=== PATIENT | male | born 1940 | race Caucasian/White ===

== ENCOUNTER 2018-08-26 06:49 | Day surgery (SDC) | payer MEDICARE ==
[~2018-08-26 06:49] MED LIST: Acetaminophen TAB* 325 MG PO ONE; Buffered Lidocaine 1% SYRIN* 1 ML/SYRINGE INTRADERM ONE; Lactated Ringers 1000 ML Bag* 1,000 ML IV SCH
[2018-08-26] MEDS ORDERED: ceFAZolin 2 GM PREMIX in ORs 2 GM/50 ML BAG IVPB ONE (07:00)
[2018-08-26] MEDS ORDERED: Buffered Lidocaine 1% SYRIN* 1 ML/SYRINGE INTRADERM ONE (07:00)
[2018-08-26] MEDS ORDERED: Acetaminophen TAB* 325 MG ONE (07:00)
[2018-08-26] MEDS ORDERED: Midazolam* 1 MG/ML 2 ML VIAL (2 MG) ONE (08:00)
[2018-08-26] MEDS ORDERED: fentaNYL* 50 MCG/ML 2 ML VIAL (100 MCG VIAL) ONE (08:00)
[2018-08-26] MEDS ORDERED: Naloxone* 0.4 MG/ML 1 ML VIAL IV PRN (08:11)
[2018-08-26] MEDS ORDERED: DiMENhydriNATE IV* 50 MG/ML VIAL IV PUSH PRN (08:11)
[2018-08-26] MEDS ORDERED: Acetaminophen TAB* 325 MG PO PRN (08:11)
[2018-08-26] MEDS ORDERED: HYDROcodone/ACETAMIN 5-325 MG* 1 TAB PO PRN (08:11)
[2018-08-26] MEDS ORDERED: diPHENhydraMINE IV* 50 MG/ML 1 ml VIAL (BENADRYL) IV PRN (08:11)
[2018-08-26] MEDS ORDERED: Lidocain 1% EPI 1:100,000 * 30 ML MDV ONE (08:35)
[2018-08-26] MEDS ORDERED: Famotidine IV* 10 MG/ML 2 ML (20 mg) ONE (08:43)
[2018-08-26] MEDS ORDERED: Ondansetron INJ* 2 MG/ML VIAL ONE (09:01)
[2018-08-26] MEDS ORDERED: Propofol* 10 MG/ML 20 ML BTL ONE (09:01)
[2018-08-26] MEDS ORDERED: Lidocaine 2% PF * 5 ML VIAL ONE (09:07)
--- NOTE | 2018-08-26 09:47 | BRIEFOPN ---
Brief Operative Note - Surgery Procedures: Procedures Pre-OP Diagnoses: B cell lymphoma Post-op Diagnosis: same Procedure: Insertion of powerport Surgeon: Cristine Asst: none Anethesia: local, MAC EBL: minimal IVF: minimal Specimen: none Drains: none 8Fr single lumen power port via L SCV
[2018-08-26 09:53] VITALS: BP 126/58
--- NOTE | 2018-08-26 14:25 | OP ---
CC: Primary care doctor; Dr. Darshana Munguia; [facility]* DATE OF OPERATION: 08/26/18 - SDS DATE OF : 44 SURGEON: Garrett Colunga MD SYSTEM ADMINISTRATOR: None. ANESTHESIOLOGIST: Dr. Soliman. ANESTHESIA: Local MAC anesthesia. PRE-OP DIAGNOSIS: B-cell lymphoma. POST-OP DIAGNOSIS: B-cell lymphoma. OPERATIVE PROCEDURE: Insertion of PowerPort. BLOOD LOSS: Less than 10 cc. FLUIDS: Minimal crystalloid fluid given. SPECIMEN: None. A 8-[place] PowerPort inserted via the left subclavian vein. DESCRIPTION OF PROCEDURE: The patient was identified in the preoperative area. I discussed the case with him. He was marked, brought to the operating room and placed on the operating table in supine position. Preoperative antibiotics were given. Sequential compression devices were placed on bilateral lower extremities. Gentle sedation was given and the patient's left chest and neck were prepped and draped in the standard surgical fashion. Time-out was performed. Injection of lidocaine infraclavicularly was performed. We the accessed the left subclavian vein and under fluoroscopy, placed a wire into the superior vena cava. Next, an incision inferior to this was made. We made a pocket for the Power-Port. We brought the wire through this incision and then dilated the vein under fluoroscopy. We placed the 8-[place] tubing through the split-away catheter and removed this assuring its sizing and cut the tubing to size and attached it to the PowerPort, which was then dropped into the pocket and sutured at the lateral and medial aspect with a 0 Prolene suture. We irrigated the wound and then reapproximated the skin in the standard surgical fashion after aspirating blood with ease and injecting heparinized saline. The patient tolerated the procedure well and was transferred to the PACU in stable condition. [id number]/CPS #: [id number] [facility]
== END 2018-08-26 10:13 | disposition home or self-care (01) ==
LOC: OR 06:49
PROVIDERS: ATTEND Surgery
DX: C83.39 Diffuse large B-cell lymphoma, extranodal and solid organ sites (principal); M06.9 Rheumatoid arthritis, unspecified; E78.00 Pure hypercholesterolemia, unspecified
CPT/HCPCS: 76000; A9270-GY; C1788; J0690; J1642; J2250; J2405; J2704; J3010

== ENCOUNTER 2018-09-11 06:27 | Inpatient (IN) | payer MEDICARE ==
[2018-09-11] MEDS ORDERED: Aspirin 81 mg CHEW TAB* 81 MG TAB.CHEW PO ONE (06:51)
--- NOTE | 2018-09-11 06:56 | ED ---
HPI Chest Pain - HPI Summary HPI Summary: 78-year-old male presents with chest pain today. He states it started at 3 am. He states that it started with diaphoresis along with the chest pain and shortness of breath. He also has left arm and left foot numbness and tingling. He denies any cough. No palpitations. No fevers. No recent illness. Denies any abdominal pain. No nausea and vomiting. Denies any cardiac history. He just started chemotherapy for non-Hodgkin's lymphoma. He is a nonsmoker. Mom does have cardiac issues. He states it started as a sharp pain and now is a dull pain. Does not radiate anywhere. It is located more in the right side of his chest. - History of Current Complaint Chief Complaint: EDChestPainROMI Time Seen by Provider: 09/11/18 06:40 Pain Intensity: 5 - Allergy/Home Medications Allergies/Adverse Reactions: Allergies Allergy/AdvReac Type Severity Reaction Status Date / Time No Known Drug Allergies Allergy See Comment Verified 09/11/18 10:43 HAYFEVER Allergy Mild MILD Uncoded 08/26/18 07:10 PMH/Surg Hx/FS Hx/Imm Hx Endocrine/Hematology History: Denies: Hx Diabetes Cardiovascular History: Reports: Other Cardiovascular Problems/Disorders - CHOLESTEROL CONTROL WITH MEDS Denies: Hx Hypertension, Hx Pacemaker/ICD Respiratory History: Denies: Hx Asthma History: Denies: Hx Renal Disease Musculoskeletal History: Reports: Hx Arthritis Sensory History: Reports: Hx Cataracts, Hx Contacts or Glasses - GLASSES, Hx Glaucoma Denies: Hx Hearing Aid Opthamlomology History: Reports: Hx Cataracts, Hx Contacts or Glasses - GLASSES , Hx Glaucoma Neurological History: Reports: 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 LASER TREATMENT FOR GLAUCOMA, 2 X RIGHT, 1 X LEFT, OFFICE Hx Anesthesia Reactions: No Infectious Disease History: No Infectious Disease History: Reports: Hx Hepatitis - 40 YEARS AGO Denies: Traveled Outside the [place] in Last 30 Days - Family History Known Family History: Positive: Cardiac Disease - Social History Alcohol Use: None Substance Use Type: Reports: None Smoking Status (MU): Never Smoked Tobacco Review of Systems Positive: Skin Diaphoresis. Negative: Fever Positive: Chest Pain Positive: Shortness Of Breath. Negative: Cough Negative: Abdominal Pain, Vomiting, Nausea Positive: Paresthesia - left arm All Other Systems Reviewed And Are Negative: Yes Physical Exam Triage Information Reviewed: Yes Vital Signs On Initial Exam: Initial Vitals Temp Pulse Resp BP Pulse Ox 96.8 F 82 22 152/81 99 09/11/18 06:29 09/11/18 06:29 09/11/18 06:29 09/11/18 06:29 09/11/18 06:29 Vital Signs Reviewed: Yes Appearance: Positive: Well-Appearing Skin: Positive: Warm, Dry Head/Face: Positive: Normal Head/Face Inspection Eyes: Positive: Normal, EOMI, KIRSTEN, Conjunctiva Clear ENT: Positive: Pharynx normal Respiratory/Lung Sounds: Positive: Clear to Auscultation, Breath Sounds Present , Other - reproducible chest pain Cardiovascular: Positive: Normal, RRR Abdomen Description: Positive: Nontender, Soft Bowel Sounds: Positive: Present Musculoskeletal: Positive: Strength/ROM Intact - left arm and foot, Other - good pulses, sensation grossly intact Neurological: Positive: Normal Psychiatric: Positive: Normal Diagnostics - Vital Signs Vital Signs Temp Pulse Resp BP Pulse Ox 09/11/18 06:29 96.8 F 82 22 152/81 99 - Laboratory Result Diagrams: 09/11/18 06:47 09/11/18 06:47 Lab Statement: Any lab studies that have been ordered have been reviewed, and results considered in the medical decision making process. - Radiology chest Radiology Interpretation Completed By: Radiologist Summary of Radiographic Findings: IMPRESSION: NO EVIDENCE FOR ACTIVE CARDIOPULMONARY DISEASE. - CT cta CT Interpretation Completed By: Radiologist Summary of CT Findings: IMPRESSION: No evidence of pulmonary embolus is noted. No evidence of aortic dissection or. aneurysmal dilatation is noted. Prominent interlobular septal thickening with reticular nodular pattern suspicious for. usual interstitial pneumonitis. - EKG No standard instances Cardiac Rate: NL EKG Rhythm: Sinus Rhythm Summary of EKG Findings: sinus rhythm, lateral infarct old, t wave changes in anterior leads 2 Cardiac Rate: NL EKG Rhythm: Sinus Rhythm EKG Comparison: No Significant Change Summary of EKG Findings: sinus rhythm, t wave changes anterior leads Re-Evaluation - Re-Evaluation First Eval Re-Evaluation Time: 07:56 Change: Improved Comment: chest pain gone but is still sob, patient able to hold a conversation but becomes winded while talking Second Eval Re-Evaluation Time: 08:30 Comment: still sob Third Eval Re-Evaluation Time: 09:00 Comment: discussed results Fourth Eval Comment: pain improved with nitro Fifth Eval Re-Evaluation Time: 10:15 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 He states it started at 3 am. He states that it started with diaphoresis along with the chest pain and shortness of breath. He also has left arm and left foot numbness and tingling. He denies any cough. No palpitations. No fevers. No recent illness. Denies any abdominal pain. No nausea and vomiting. Denies any cardiac history. He just started chemotherapy for non-Hodgkin's lymphoma. He is a nonsmoker. Mom does have cardiac issues. He states it started as a sharp pain and now is a dull pain. Does not radiate anywhere. It is located more in the right side of his chest. on exam lungs CTA. heart RRR. ekg shows sinus rhythm. wbc normal. troponin 1.45. gave aspirin and chest pain resolved but is still short of breath so will get CTA. d-dimer elevated. spoke with dr aggarwal and said to have dr sharpe speak with him about a cath and get a stat echo. patient was started on heparin. hospitalist were asked to admit. patient will be taken to the laboratory chemist. - Chest Pain Differential Diagnosis/HQI/PQRI: Angina, Chest Wall, Pulmonary Embolism - Diagnoses Provider Diagnoses: NSTEMI (non-ST elevated myocardial infarction) - Critical Care Time Critical Care Time: 30-74 min - 70 Discharge - Sign-Out/Discharge Documenting (check all that apply): Patient Departure - Discharge Plan Condition: Stable Disposition: ADMITTED TO [facility] Referrals: Andres Hampton MD [Primary Care Provider] - - Billing Disposition and Condition Condition: STABLE Disposition: Admitted to [facility]
[2018-09-11 07:09] LABS: ABS Lymphocytes 0.6 10^3/ul (1.0-4.8); ABS Monocytes 0.6 10^3/ul (0-0.8); ABS Neutrophils 3.7 10^3/ul (1.5-7.7); Eosinophil % 0.4 %; Hematocrit 40 % (42-52); Lymphocyte % 11.5 %; Mean Corpuscular HGB Conc 35 g/dL (31-36); Mean Corpuscular Hemoglobin 35 pg (27-31); Mean Corpuscular Volume 100 fL (80-94); Mean Platelet Volume 8.5 fL (7.4-10.4); Nucleated Red Blood Cells % 0.1; Platelet Count 156 10^3/uL (150-450); Red Blood Count 4.04 10^6 /uL (4.18-5.48); Red Cell Distribution Width 14 % (10.5-15); White Blood Count 4.9 10^3/uL (3.5-10.8)
[2018-09-11 07:30] LABS: ALT 49 U/L (7-52); AST 70 U/L (13-39); Albumin 3.7 g/dL (3.2-5.2); Albumin/Globulin Ratio 1.1 (1-3); Alkaline Phosphatase 103 U/L (34-104); Anion Gap 10 mmol/L (2-11); BUN/Creatinine Ratio 13.2 (8-20); Blood Urea Nitrogen 10 mg/dL (6-24); CO2 Carbon Dioxide 24 mmol/L (22-32); Calcium 9.5 mg/dL (8.6-10.3); Chloride 100 mmol/L (101-111); EGFR African American 120.7 (>60); EGFR Non-African American 99.7 (>60); Globulin 3.3 g/dL (2-4); Glucose 138 mg/dL (70-100); Sodium 134 mmol/L (135-145)
[2018-09-11 07:32] LABS: INR 1.22 (0.82-1.09)
[2018-09-11] MEDS ORDERED: Nitroglycerin TAB 0.4 MG* 0.4 MG TAB SL ONE ×2 (07:37→09:15)
[2018-09-11 07:44] LABS: Troponin I 1.45 ng/mL (<0.04)
[2018-09-11 08:00] LABS: C Reactive Protein 9.42 mg/L (<8.01)
[2018-09-11] MEDS ORDERED: Iohexol 350* (CONTRAST) 500 ML MDV IV ONE (08:03)
[2018-09-11] MEDS ORDERED: Heparin DRIP 25,000 UNITS(*) 25,000 UNITS/500 ML BAG IV SCH (09:00)
--- NOTE | 2018-09-11 09:13 | ED ---
Progress - Progress Note Progress Note: Progress note for patient of MIKE Maher for 78 year old male patient with chest pain, lab results indicating elevated troponin. Patient is currently undergoing chemotherapy and states the he was in excruciating chest pain this morning. He reports SOB. He states he is currently a 3/10 in severity but was 10/10 this morning. The patient was agreeable to a plan for admission. Physical Exam Triage Information Reviewed: Yes Vital Signs On Initial Exam: Initial Vitals Temp Pulse Resp BP Pulse Ox 96.8 F 82 22 152/81 99 09/11/18 06:29 09/11/18 06:29 09/11/18 06:29 09/11/18 06:29 09/11/18 06:29 Vital Signs Reviewed: Yes Appearance: Positive: Well-Appearing Skin: Positive: Warm, Dry Head/Face: Positive: Normal Head/Face Inspection Eyes: Positive: Normal, EOMI, KIRSTEN, Conjunctiva Clear ENT: Positive: Pharynx normal Respiratory/Lung Sounds: Positive: Clear to Auscultation, Breath Sounds Present , Other - reproducible chest pain Cardiovascular: Positive: Normal, RRR Abdomen Description: Positive: Nontender, Soft Bowel Sounds: Positive: Present Musculoskeletal: Positive: Strength/ROM Intact - left arm and foot, Other - good pulses, sensation grossly intact Neurological: Positive: Normal Psychiatric: Positive: Normal Re-Evaluation - Re-Evaluation First Eval Re-Evaluation Time: 07:56 Change: Improved Comment: chest pain gone but is still sob, patient able to hold a conversation but becomes winded while talking Second Eval Comment: still sob Third Eval Comment: discussed results Fourth Eval Comment: pain improved with nitro 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 Patient is currently undergoing chemotherapy and states the he was in excruciating chest pain this morning. He reports SOB. He states he is currently a 3/10 in severity but was 10/10 this morning. The patient was agreeable to a plan for admission. - Diagnoses Provider Diagnoses: NSTEMI (non-ST elevated myocardial infarction) - Critical Care Time Critical Care Time: 30-74 min - 60 Mins Discharge - Sign-Out/Discharge Documenting (check all that apply): Patient Departure - Admission - Discharge Plan Condition: Stable Disposition: ADMITTED TO [facility] Referrals: Andres Hampton MD [Primary Care Provider] - - Billing Disposition and Condition Condition: STABLE Disposition: Admitted to [facility] - Attestation Statements Document Initiated by Scribe: Yes Documenting Scribe: Chao Orellana Provider For Whom Scribe is Documenting (Include Credential): Eleazar Ruiz MD Scribe Attestation: Chao Wells, scribed for Eleazar Ruiz MD on 09/11/18 at 1244. Scribe Documentation Reviewed: Yes Provider Attestation: The documentation as recorded by the Chao sam accurately reflects the service I personally performed and the decisions made by , Eleazar Ruiz MD Status of Scribe Document: Viewed
[2018-09-11 09:23] LABS: Activated Partial Thrombo Time 31.7 seconds (26.0-36.3)
[2018-09-11] MEDS ORDERED: nitroGLYCERIN DRIP* 25,000 MCG/250 ML BTL IV SCH (10:00)
[2018-09-11 10:03] LABS: Troponin I 2.42 ng/mL (<0.04)
[2018-09-11] MEDS ORDERED: Midazolam* 1 MG/ML 5 ML VIAL (5 MG) ONE (10:35)
[2018-09-11] MEDS ORDERED: Heparin(*) 1000 UNIT/ML 10 ML VIAL CATH LAB IV ONE (10:35)
[2018-09-11] MEDS ORDERED: fentaNYL* 50 MCG/ML 2 ML VIAL (100 MCG VIAL) ONE (10:35)
[2018-09-11] MEDS ORDERED: VERAPAMIL 2.5 MG/ML 2 ML VIAL ** 5 mg/2 ml ONE ×2 (10:36→11:15)
[2018-09-11] MEDS ORDERED: Lidocaine 1% INJ* 10 MG/ML 30 ML SDV ONE (10:36)
[2018-09-11] MEDS ORDERED: nitroGLYCERIN DRIP* 25,000 MCG/250 ML BTL ONE (10:36)
[2018-09-11] MEDS ORDERED: Iohexol 350 (CONTRAST) 200 ML MDV IV ONE ×3 (10:36→11:41)
--- NOTE | 2018-09-11 11:10 | ECHO ---
*[facility]* [place] [address] Fax #: [phone] Transthoracic Echocardiogram Patient: Vera, Height: 72 in / Jean-Pierre 182.9 cm : 1940 Weight: 214.6 lb / Study Date: 09/11/2018 97.5 kg Age: 78 BP: 127 / 80 Gender: M BMI/BSA: 29.2 kg/m^2 HR: 71 bpm / 2.2 m^2 *Educational Program Director: * Marni Pratt [facility] *Referring Physician: * Randee Maher *Reading Physician: * Cathy Lu MD Indications: Chest Pain, unspecified. History: The patient has lymphoma and is undergoingchemotherapy. Risk factors: Dyslipidemia. Conclusions Summary: 1. Left ventricle: The cavity size is normal. Wall thickness is mildly increased. Systolic function is at the lower limits of normal. The estimated ejection fraction is 50-55%. Hypokinesis of the apical myocardium. Hypokinesis of the distal anteroseptal, anterior, and inferior myocardium. 2. Left atrium: The atrium is mildly dilated. 3. Mitral valve: There is mild to moderate regurgitation. 4. Pericardium, extracardiac: A trivial pericardial effusion is identified. Recommendations: No prior study available. Study data: Transthoracic echocardiogram. Procedure: Transthoracic echocardiography was performed. Image quality was good. Complete 2D, spectral Doppler, and color flow Doppler. Location: Emergency department. Patient status: Inpatient. Patient room number: 12. Study status: Stat. Rhythm: Normal sinus rhythm. Findings Left ventricle: The cavity size is normal. Wall thickness is mildly increased. Systolic function is at the lower limits of normal. The estimated ejection fraction is 50-55%. Regional wall motion abnormalities: Hypokinesis of the apical myocardium. Hypokinesis of the distal anteroseptal, anterior, and inferior myocardium. Doppler parameters are consistent with abnormal left ventricular relaxation (grade 1 diastolic dysfunction). Right ventricle: The cavity size is normal. Systolic function is normal. Left atrium: The atrium is mildly dilated. Right atrium: The atrium is normal in size. Mitral valve: The annulus is mildly calcified. The leaflets are mildly thickened. There is no evidence of stenosis. There is mild to moderate regurgitation. Aortic valve: The valve is probably trileaflet. The leaflets are normal thickness. There is no evidence of stenosis. There is mild regurgitation. Tricuspid valve: The leaflets are normal thickness. There is no evidence of stenosis. There is no significant regurgitation. Pulmonic valve: Not well visualized. There is no significant regurgitation. Aorta: Aortic root: The aortic root is upper normal in size. Ascending aorta: The ascending aorta is appears normal. Aortic arch: The aortic arch is mildly dilated. Pericardium: A trivial pericardial effusion is identified. Pulmonary arteries: Not well visualized. Systemic veins: Inferior vena cava: The vessel is normal in size. The respirophasic diameter changes are in the normal range (>= 50%). Measurements Left ventricle Value Ref Aortic valve Value Ref NARCISO, LAX 5.4 cm 4.2 - 5.8 Violette diam, ED 2.4 cm ---- ESD, LAX (H) 4.2 cm 2.5 - 4.0 Peak v, S 1.42 m/sec ---- FS, LAX (L) 23 % 25 - 43 VTI, S 24.9 cm ---- PW, ED, LAX (H) 1.2 cm 0.6 - 1.0 Mean grad, S 4.0 mm Hg ---- EF (L) 45 % 52 - 72 Peak grad, S 8.0 mm Hg ---- E', lat violette, TDI (L) 2.3 cm/sec >=10.0 E/e', lat violette, 24 Mitral valve Value Ref TDI Peak E 0.56 m/sec ---- E', med violette, TDI (L) 4.0 cm/sec >=7.0 Peak A 1.1 m/sec ---- E/e', med violette, 14 Decel time 203 ms ---- TDI PHT 94 ms ---- E', avg, TDI 3.2 cm/sec Mean grad, D 2.0 mm Hg ---- E/e', avg, TDI (H) 18 <=14 Peak grad, D 6.0 mm Hg ---- Peak E/A ratio 0.5 ---- LVOT Value Ref MVA, PHT 2.3 cm^2 ---- Peak jordan, S 1.23 m/sec VTI, S 23.0 cm Pulmonic valve Value Ref Peak grad, S 6 mm Hg Peak v, S 0.82 m/sec ---- Mean grad, S 3 mm Hg Peak grad, S 3.0 mm Hg ---- Ventricular septum Value Ref Aortic root Value Ref IVS, ED (H) 1.2 cm 0.6 - 1.0 Root diam 3.5 cm <4.3 Right ventricle Value Ref Ascending aorta Value Ref NARCISO, LAX 3.3 cm AAo AP diam, S 3.4 cm ---- NARCISO minor ax, A4C 2.2 cm 1.9 - 3.5 mid Aortic arch Value Ref Arch diam 3.6 cm ---- Left atrium Value Ref AP dim, ES (H) 4.70 cm 3.00 - Decending aorta Value Ref 4.00 Danish peak jordan 0.64 m/sec ---- ML dim, A4C 5.0 cm SI dim, A4C 6.1 cm Inferior vena cava Value Ref Vol/bsa, ES, A/L (H) 36 ml/m^2 16 - 34 Diam 1.3 cm ---- Right atrium Value Ref SI dim, ES 4.8 cm 3.4 - 5.3 ML dim, ES, A4C 3.4 cm 2.6 - 4.4 Estimated RAP 3 mm Hg Legend: (L) and (H) nataly values outside specified reference range. Prepared and electronically signed by Cathy Lu MD 09/11/2018 11:10
[2018-09-11] MEDS ORDERED: Bivalirudin(*) 250 MG VIAL ONE ×2 (11:25→12:28)
[2018-09-11] MEDS ORDERED: Ticagrelor* 90 MG TAB PO ONE (12:10)
[2018-09-11] MEDS ORDERED: Docusate CAP* 100 MG PO PRN (12:28)
[2018-09-11] MEDS ORDERED: Nitroglycerin TAB 0.4 MG* 0.4 MG TAB SL PRN (12:28)
[2018-09-11] MEDS ORDERED: Ondansetron INJ* 2 MG/ML VIAL IV PRN (12:28)
[2018-09-11] MEDS ORDERED: Acetaminophen TAB* 325 MG PO PRN (12:28)
[2018-09-11 12:34] LABS: CKMB ng/mL 24.1 ng/mL (0.6-6.3)
[2018-09-11] MEDS ORDERED: Atorvastatin* 80 MG TAB PO ONE (12:36)
[2018-09-11] MEDS ORDERED: BIVALIRUDIN IVPB SCH (12:40)
[2018-09-11] MEDS ORDERED: NS 0.9% IVPB SCH (12:40)
[2018-09-11 12:43] LABS: Creatine Kinase 145 U/L (10-223)
--- OUTSIDE RECORDS SUMMARY | 2018-09-11 12:55 | XMS REPORT | Continuity of Care Document ---
:1940 External Reference #:[id number] Author Name Kirk Torres M.D. Address [address] [place] [address] Care Team Providers Name Role Phone Andres Hampton M.D. Primary Care Physician Unavailable Payers Date Identification Numbers Payment Provider Subscriber Policy Number: [id number] [employer] Jean-Pierre Lebron PayID: [id number] [address] [place] [address] Advance Directives Description No Information Available Problems Active Problems Provider Date Hyperactive behavior Onset: Pure hypercholesterolemia Onset: Primary open angle glaucoma Kirk Torres M.D. Onset: 10/12/2014 Pseudoexfoliation glaucoma Kirk Torres M.D. 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 Onset: 2014 Pseudophakia Kirk Torres M.D. Onset: 10/12/2014 Rheumatoid arthritis Onset: Chronic allergic conjunctivitis Kirk Torres M.D. Onset: 08/17/2016 Presence of intraocular lens Kirk Torres M.D. Onset: 08/17/2016 Epiretinal membrane Kirk Torres M.D. Onset: 06/12/2018 Non-Hodgkin's lymphoma (clinical) Onset: Family History Date Family Member(s) Observation Comments Father No Current Problems Mother No Current Problems Social History Type Date Description Comments Sex Unknown Marital Status Single Occupation [employer] Work Status Retired ETOH Use Rarely consumes alcohol Tobacco Use Start: Unknown Patient has never smoked Recreational Drug Use Never Used Drugs Smoking Status Reviewed: 09/01/18 Patient has never smoked Allergies, Adverse Reactions, Alerts Description No Known Drug Allergies Medications Active Medications SIG Qnty Indications Ordering Date Provider Latanoprost Instill 1 Drop In 10units Kirk Carrasco 06/12/2018 0.005% Solution Both Eyes Every Jose Torres Night Patanol 1 drop twice a day 15ml Kirk Carrasco 05/16/2018 0.1% Solution as needed Jose Torres Citalopram Hydrobromide TK 1 T PO qd Unknown 20mg Tablets Methotrexate 5 tabs Tuesdays / Unknown 2.5mg Tablets 5 tabs Fridays Folic Acid Take Two Daily Unknown 1mg Tablets Atorvastatin Calcium TK 1 T PO qpm Unknown 10mg Tablets Prednisone TK 2 TS Daily Days Unknown 50mg Tablets 1-5 Of Chemotherapy Cycle Ondansetron HCL TK 1 T PO Q 4 H Unknown 4mg Tablets prn Prochlorperazine TK 1 T PO Q 6 H Unknown Maleate prn 10mg Tablets History Medications Pred Forte one drop three 5ml H40.1432 Kirk Carrasco 06/12/2018 - 1% times a day for Jose Torres 08/31/2018 Suspension three days right eye, then three times a day for three days os. only after procedure. Epinastine HCL 1 drop twice a day 15ml Kirk Carrasco 12/12/2017 - in each eye Jose Torres 06/11/2018 0.05% Solution Patanol 1 drop twice a day 15ml Kirk Carrasco 12/06/2017 - 0.1% as needed Jose Torres 12/05/2017 Solution Pazeo 1 drop both eyes 7.5ml H10.45 Kirk Carrasco 04/08/2017 - 0.7% Solution daily Jose Torres 12/06/2017 Pataday 1 drop both eyes 2.5ml H10.45 Kirk Carrasco 08/17/2016 - 0.2% every day Jose Torres 04/07/2017 Solution Clear Eyes For Dry 7-8 times a day as Kirk Carrasco 02/15/2016 - Eyes Outdoors needed Jose Torres 06/11/2018 1-0.25% Solution Pred Forte One drop three 5ml H40.1432 Kirk Carrasco 08/18/2015 - 1% times a day for Jose Torres 09/08/2015 Suspension three days OD, then three times a day for three days OS. Only after procedure. Lumigan Instill 1 Drop 7.500ml Kirk Carrasco 10/11/2014 - 0.01% Into Both Eyes AT Jose Torres 10/03/2015 Solution Bedtime Omeprazole Unknown - 40mg 08/17/[address] Simvastatin Unknown - 40mg 08/17/2015 Tablets Prednisone Unknown - 5mg 08/16/2016 Tablets Immunizations Description No Information Available Vital Signs Date Vital Result Comment 06/23/2018 8:18am BP Systolic 136 mmHg BP Diastolic 70 mmHg Heart Rate 60 /min Respiratory Rate 18 /min 06/16/2018 2:55pm BP Systolic 142 mmHg BP Diastolic 72 mmHg Heart Rate 64 /min Respiratory Rate 16 /min 09/05/2015 3:27pm BP Systolic 122 mmHg BP Diastolic 68 mmHg Heart Rate 66 /min Respiratory Rate 16 /min 08/29/2015 1:14pm BP Systolic 125 mmHg BP Diastolic 71 mmHg Heart Rate 72 /min Respiratory Rate 16 /min 08/22/2015 2:38pm BP Systolic 146 mmHg BP Diastolic 74 mmHg Heart Rate 66 /min Respiratory Rate 14 /min Results Description No Information Available Procedures Date Code Description Status 06/23/2018 70630 Trabeculoplasty By Laser Surgery Completed 06/16/2018 58393 Trabeculoplasty By Laser Surgery Completed 06/12/2018 51072 Scanning Computerized Opthalmic Diagnostic Posterior Seg Completed Retina 06/12/2018 03754 Est Patient Intermediate Exam Completed 12/06/2017 61832 Scanning Computerized Ophthalmic Diagnostic Imag Posterior Completed Seg On 12/06/2017 13399 Visual Field Exam Extended Completed 12/06/2017 35619 Est Patient Comprehensive Exam Completed 04/08/2017 65695 Est Patient Intermediate Exam Completed 08/17/2016 22847 Scanning Computerized Ophthalmic Diagnostic Imag Posterior Completed Seg On 08/17/2016 29355 Visual Field Exam Extended Completed 08/17/2016 75539 Est Patient Comprehensive Exam Completed 02/16/2016 88802 Est Patient Intermediate Exam Completed 09/05/2015 74323 Trabeculoplasty By Laser Surgery Completed 08/29/2015 64915 Trabeculoplasty By Laser Surgery Completed 08/18/2015 27416 Scanning Computerized Ophthalmic Diagnostic Imag Posterior Completed Seg On 08/18/2015 58265 Visual Field Exam Extended Completed 08/18/2015 05983 Determination Of Refractive State Completed 08/18/2015 82930 Est Patient Comprehensive Exam Completed 10/12/2014 43256 Est Patient Intermediate Exam Completed 04/13/2014 70176 Fundus Photography With Interpretation And Report Completed 04/13/2014 85915 Est Patient Comprehensive Exam Completed 10/13/2013 18419 Est Patient Intermediate Exam Completed 05/06/2013 65844 Cataract Surgery Complex Completed 04/29/2013 14128 Cataract Surgery Complex Completed 04/06/2013 89815 Est Patient Intermediate Exam Completed 04/06/2013 83401 Visual Field Exam Extended Completed 04/06/2013 79297 Scanning Computerized Ophthalmic Diagnostic Imag Posterior Completed Seg On 04/06/2013 85150 Ophthalmic Biometry Completed 04/06/2013 84580 Ophthalmic Biometry Completed 10/09/2012 87664 Est Patient Intermediate Exam Completed 05/26/2012 65049 Trabeculoplasty By Laser Surgery Completed 04/29/2012 60179 Visual Field Exam Extended Completed 04/29/2012 57328 Determination Of Refractive State Completed 11/22/2011 38882 Scanning Computerized Ophthalmic Diagnostic Imag Posterior Completed Seg On 11/22/2011 84658 Visual Field Exam Extended Completed 11/22/2011 24163 Est Patient Comprehensive Exam Completed 07/20/2011 37762 Est Patient Intermediate Exam Completed 06/07/2011 30922 Trabeculoplasty By Laser Surgery Completed 05/29/2011 99323 Trabeculoplasty By Laser Surgery Completed 05/11/2011 47255 Est Patient Comprehensive Exam Completed 05/11/2011 71485 Fundus Photography With Interpretation And Report Completed 05/07/2011 92448 Visual Field Exam Extended Completed 05/07/2011 36095 Est Patient Comprehensive Exam Completed 08/22/2010 37408 Est Patient Comprehensive Exam Completed 05/03/2010 34941 Determination Of Refractive State Completed 05/03/2010 80494 Est Patient Comprehensive Exam Completed 02/25/2009 77053 Visual Field Exam Extended Completed 02/25/2009 01828 Determination Of Refractive State Completed 02/25/2009 54930 Est Patient Comprehensive Exam Completed 04/16/2008 36475 Scanning Laser W/Interp And Report Completed 04/16/2008 73628 New Patient Comprehensive Exam Completed 04/16/2008 04196 Pachymetry Completed Encounters Type Date Location Provider Dx Diagnosis Office Visit 10/17/2015 Kirk Miller, H40.1432 Capslr glaucoma 7:45a eric BAKER M.D. w/pseudxf lens, bilateral, moderate stage Z96.1 Presence of intraocular lens Office Visit 07/08/2012 8:45a Kirk Miller 365.11 Primary Open eric BAKER M.D. Angle Glaucoma 365.73 Severe / Advanced / End Stage Glaucoma Office Visit 04/29/2012 8:45a Kirk Miller 365.11 Primary Open eric BAKER M.D. Angle Glaucoma 365.72 Moderate Glaucoma Office Visit 01/21/2012 9:15a Kirk Miller 365.11 Primary Open eric BAKER M.D. Angle Glaucoma 365.72 Moderate Glaucoma Office Visit 10/06/2009 8:00a Kirk Fragoso 365.52 Glaucoma MD Brian, Kayode Us Pseudoexfoliation pc Office Visit 08/25/2009 8:00a Kirk Ambriz.52 Glaucoma MD Brian, Kayode Us Pseudoexfoliation pc Office Visit 08/27/2008 8:00a Kirk Ambriz.52 Eric Torres MD, Oltz, O.D. Pseudoexfoliation pc Office Visit 05/28/2008 8:00a Kirk Fragoso 365.52 Glaucoma MD Torres Oltz, O.D. 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 If you are a smoker, we strongly recommend that you quit.If you are not a smoker, we strongly recommend that you do not start. Your glaucoma is stable at this time.Your eye pressure is within an acceptable range, and your testing does not show any further deterioration at this time. Please continue your treatment. Your eyes responded well to the laser treatment. CONTINUE: Latanoprost 0.005 % instill 1 drop in both eyes every nightDISCONTINUE LATANOPROST 1 WEEK BEFORE YOUR NEXT APPTFollow up:3 Month Follow Up IOP Check D/ C LATAN 1 WKS PRIOR At your next visit, we are not planning to dilateyour eyes. However, if you have any changes in your vision or new symptoms, there are certain situations that require us to dilate your eyes. If Dr. Torres requests any additional testing, that may require extra time. 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
--- OUTSIDE RECORDS SUMMARY | 2018-09-11 12:55 | XMS REPORT | Continuity of Care Document ---
:1940 External Reference #:[id number] Author Name Cassie Cooper Care Team Providers Name Role Phone Andres Hampton MD Primary Care Physician Unavailable Payers Date Identification Numbers Payment Provider Subscriber Policy Number: [id number] [employer] Medicare Jean-Pierre Lebron PayID: [id number] [place] [address] Advance Directives Description No Information Available Problems Description No Information Family History Date Family Member(s) Observation Comments Father Melanoma : (age 94 Years) Father due to Natural Causes Mother due to Natural Causes () Mother due to Alzheimer's () Disease Social History Type Date Description Comments Sex Unknown Marital Status Single Occupation Currently Working [employer] ETOH Use Denies alcohol use Tobacco Use Start: Unknown Patient has never smoked Smoking Status Reviewed: 08/19/18 Patient has never smoked Exercise Type/Frequency Exercises regularly Allergies, Adverse Reactions, Alerts Description No Known Drug Allergies Medications Active Medications SIG Qnty Indications Ordering Provider Date Celexa 1 by mouth every Unknown 20mg Tablets day Folic Acid 2 tabs by mouth Unknown 1mg Tablets every day Latanoprost twice daily as Unknown 0.005% directed Solution Methotrexate 5 on and 5 on Unknown 2.5mg Fridays (last dose Tablets 08/19/18) Patanol one drop in each Unknown 0.1% Solution eye twice daily Immunizations Description No Information Available Vital Signs Date Vital Result Comment 08/19/2018 1:00pm Height 72 inches 6'0" Weight 219.00 lb Heart Rate 78 /min BP Systolic Sitting 152 mmHg BP Diastolic Sitting 80 mmHg Respiratory Rate 18 /min Body Temperature 97.3 F BMI (Body Mass Index) 29.7 kg/m2 Results Description No Information Available Procedures Description No Information Available Encounters Description No Information Available Plan of Treatment Future Appointment(s):08/26/2018 9:30 am - Garrett Colunga MD, FACS at [facility]08/20/2018 2:30 pm - Traveling ECHO [address] [facility] AT [facility]79/30/2019 - Garrett Colunga MD, FACSC83.39 Diffuse large B-cell lymphoma, extranodal and solid organ siFollow up:operating room
[2018-09-11] MEDS: Captopril TAB* 12.5 MG PO SCH ×2 (14:10→21:28)
--- NOTE | 2018-09-11 14:18 | CONS ---
CONSULTATION REPORT: DATE OF ADMISSION: 09/11/18 ATTENDING PHYSICIAN: Dr. Lu, Cardiology * (dictated by April Tello NP ). REASON FOR ADMISSION: NSTEMI. PRIMARY PHYSICIAN: Dr. Parker in [place]. PRIMARY OUTPATIENT FACILITY PHYSICAL THERAPIST: Dr. Sethi. PRIMARY ACUTE CARE SURGEON/ONCOLOGIST: Dr. Munguia. CHIEF COMPLAINT: Substernal chest pain, shortness of breath, diaphoresis. HISTORY OF PRESENT ILLNESS: This is a pleasant 78-year-old gentleman with a notable history of hyperlipidemia, rheumatoid arthritis, recent large B-cell lymphoma stage IV, on Rituxan, Vincristine, cyclophosphamide, Adriamycin, and prednisone. First cycle was 08/28/18. He states that he has been in his usual state of health. He recently had a left-side Mediport implanted 08/26/18 for initiation of above chemotherapy regimen which he had his first cycle on . His platelets did drop to 67,000 on 09/05/18. Currently, platelets are 156, 000. He states that on Saturday he developed shortness of breath and fatigue. He had blood work done at Dr. Darshana Munguia's office. He states that over the weekend he persisted to have intermittent shortness of breath, fatigue, and a dry cough. This morning he woke up at 3 a.m. to go to the bathroom. He attempted to go back to bed; however, he developed sudden onset substernal chest pain described as an ache, nonradiating with associated diaphoresis and shortness of breath. He took 1000 mg of Tylenol, pain was persisting with no alleviating factors, so he woke up his long- term partner whom he resides with. They contacted Dr. Munguia's office who prompted him to present to the emergency room. His partner drove him to [facility]. Upon being [place] [facility] EKG demonstrated new anterolateral biphasic T-wave abnormalities with troponin elevation. Thus we were asked to see the patient in consultation. He was given aspirin and sublingual nitroglycerin therapy. Pain is now 2/10. He states that the most severe rating it was 15/10 at 0300. He is currently lying in bed and states that he is still having substernal chest discomfort and shortness of breath. The patient denies dizziness, palpitations, sensation of heart racing, or syncope. 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 He denies fever, chills, nausea, vomiting, or diarrhea. He states he has never had a bleeding complication, although he has a tendency for frequent epistaxis which is why he does not take aspirin therapy. PAST MEDICAL HISTORY: 1. Notable for large B-cell lymphoma (stage IV). 2. Glaucoma. 3. Rheumatoid arthritis. 4. Borderline hyperlipidemia. PAST SURGICAL HISTORY: 1. Left-sided Mediport placement 08/26/18. 2. Nasal repair May 2018. 3. Appendectomy. 4. Cataract removal. MEDICATIONS: Home medications include: 1. Folic acid as directed. 2. Celexa as directed. 3. Rituxan. 4. Vincristine. 5. Cyclophosphamide. 6. Adriamycin. 7. Prednisone. ALLERGIES: No known drug allergies. Denies allergy to contrast dye or shell fish. FAMILY HISTORY: Negative for cardiovascular disease in first-degree relatives. 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 He lives at home with his long-term partner. Denies ever smoking or utilizing tobacco products. Drinks alcohol rarely. Denies illegal drug use. He lives an active lifestyle given his employment. REVIEW OF SYSTEMS: All systems have been reviewed and are otherwise negative except what is above mentioned in the HPI. PHYSICAL EXAMINATION: General: The patient is alert and oriented x3, cooperative with exam, appears well-nourished, in no apparent distress. Vital Signs: Pulse 78, oxygenation 96% on room air, respirations 15, blood pressure 152/79. HEENT: Head is atraumatic and normocephalic. Oral mucosa is moist. Tongue is midline. Neck: Supple. Trachea midline. No JVD. No carotid bruits. Cardiac: Normal S1 and S2. Regular rate and rhythm. No murmur, gallop , or rub noted. Lungs: Auscultated posteriorly. No evidence of adventitious breath sounds. Respirations unlabored at a rate of 15. Extremities: No pedal edema, no clubbing, and no cyanosis. Peripheral vascular: 2+ brachial and dorsal pedis pulses palpated bilaterally and symmetrically. Skin: Intact. No evidence of jaundice, rashes, or ecchymosis appreciated. DIAGNOSTIC STUDIES/LABORATORY DATA: Blood work obtained at [facility] 09/11/18: White count 4.9, hemoglobin 14, hematocrit 40, platelets 156. INR is 1.2. D-dimer 707. Sodium 134, potassium 4, chloride 100, carbon- dioxide 24, creatinine 0.76. Troponin #1 of 0.45, troponin #2 of 2.42. CK and CK-MB are pending. BNP 125. Chest/thoracic CTA was negative for PE or aortic dissection; however, according to radiology report there was prominent intralobular septal thickening with reticular nodule pattern suspicious for unusual interstitial pneumonitis. EKG reviewed demonstrated sinus rhythm rate of 72 with anterolateral biphasic T - wave abnormalities. ASSESSMENT AND PLAN: 1. A 7-hour period of substernal chest pain with associated shortness of breath and intermittent diaphoresis. The patient has biphasic anterolateral T- wave changes with troponin elevation. Troponin #2 is 2.42. The patient had a stat bedside echocardiogram which reveals a focal wall-motion abnormality per Dr. Lu. This is suggestive of NSTEMI. Symptomatology improved with administration of aspirin, nitroglycerin therapy. The patient is currently on IV heparin and nitroglycerin therapy which we will continue. We suggest admitting patient to the ICU. We will initiate aspirin 81 mg a day, Lopressor 12.5 mg p.o. b.i.d. The patient is to have left-heart catheterization with Dr. Tristen Giang. Procedure including risks and benefits were reviewed with the patient and will be re-reviewed with bulb filler. Risks include but are not limited to bleeding, infection, vessel damage, risk of contrast induced nephropathy, risk of stroke, heart attack, or . Requirement of dual-antiplatelet therapy with a potential for bleeding risk. The patient is agreeable to pursuing left heart catheterization. Consent will be obtained by Dr. Tristen Giang. I personally spoke with Dr. Darshana Munguia who is the patient's primary laborer rags/oncologist who recommends bare mental stent placement given platelets did reduce to 67,000 with current regimen of chemotherapy. We will follow closely. 2. History of stage IV large B-cell lymphoma. Follows with Dr. Darshana Munguia. 3. History of borderline hyperlipidemia. We will update LDL. Recommend LDL less than 70, we will likely initiate statin therapy. 4. Disposition. Pending course. 5. The patient is a full code. Thank you for this kind consultation. We will follow the patient closely and make further recommendations after left heart catheterization. APRIL TELLO, DIRECTOR OF EPIDEMIOLOGY [id number]/[facility] #: [id number] [facility] HOSPITALJaneth
[2018-09-11] MEDS: NS 0.9% 1000 ML** 1,000 ML IV SCH (14:32)
--- NOTE | 2018-09-11 15:16 | CATH ---
CC: Dr. Darshana Munguia; Dr. Andres Parker * CARDIAC CATHETERIZATION AND INTERVENTIONAL REPORT: DATE OF PROCEDURE: 09/11/18 - ROOM #ICU-11 INDICATION FOR PROCEDURE: The patient presents with a [id number] elevation anterior wall myocardial infarction. Asked by Dr. Lu (primary project development engineer involved with the patient in the hospital) to perform diagnostic catheterization and possible intervention. PROCEDURE: Coronary arteriography, primary stenting of the mid left anterior descending artery utilizing a 2.75 x 16 mm long Rebel bare-metal stent postdilated 3.1 to 3.2 mm with high pressure balloon inflation. CONSENT: The patient was interviewed and examined in the emergency room where the risks and benefits were explained. He understood them and wished to proceed. APPROACH UTILIZED: The right radial artery was assessed under ultrasound when the patient first presented into the laborer marine terminal and found to be an acceptable approach. PRE-CARDIAC CATHETERIZATION LABORATORY RESULTS: Hemoglobin and hematocrit of 14 and 40, platelet count of 156,000. BUN and creatinine of 10 and 0.76, sodium 134, potassium 4.0, chloride 100, bicarb 24. Troponin 2.42. EQUIPMENT UTILIZED: 1. Right radial artery sheath was a 6-Indian Glidesheath Slender. 2. Diagnostic guidewire was a 260 length Fan J-tipped guidewire. 3. Diagnostic coronary catheter was a 5-Indian TIG 4 curve catheter. 4. Guiding catheter for the intervention was a 6-Indian VL 3.5 curve guiding catheter. 5. The interventional wires utilized were 2 BMW 190 cm length guidewires, 1 for the diagonal branch, 1 for the left anterior descending artery. 6. The stent placed was a 2.75 x 16 mm long Rebel bare-metal stent ( specifically requested by Dr. Darshana Munguia, Hematology/Oncology physician, in light of risk of profound thrombocytopenia with 5 upcoming chemotherapeutic sessions). 7. Post balloon deployment PTCA catheters - 3.0 x 8 mm for the left anterior descending artery and a 1.2 x 8 mm for the ostium of the diagonal branch. 8. Closure device was a vascular band by [employer]. MEDICATIONS GIVEN: 1. The patient had already received 4000 units of heparin and full dose aspirin in the emergency room. 2. The patient had also received a total of 180 mg of Brilinta as well as an Angiomax bolus and an Angiomax drip after the ACT was found to be subtherapeutic. 3. The patient also received a radial artery cocktail of 300 mcg of nitroglycerin and 3 mg of verapamil. 4. Intracoronary nitroglycerin was given as well. 5. 1.5 mg of Versed. DESCRIPTION OF PROCEDURE: The patient was brought to the cardiovascular laboratory where a formal time-out was performed. He was prepped and draped in sterile fashion, and under ultrasound guidance, the right radial artery sheath was placed. Diagnostic coronary arteriography was performed utilizing the TIG 4 catheter. The decision was then made to intervene into the left anterior descending artery mid segment. An ACT was checked and found to be subtherapeutic, and as such, Angiomax bolus and Angiomax drip were started. Guiding views were obtained utilizing the VL 3.5 curve left coronary 6-Indian catheter. An interventional wire was placed in the LAD and a separate wire into the diagonal branch. Primary stenting was performed utilizing 2.75 x 16 mm long Rebel bare-metal stent as requested by Dr. Darshana Munguia in light of the patient having to undergo 5 sessions of chemotherapy with the potential for profound thrombo-cytopenia and risk of bleeding on dual antiplatelet therapy. Following this, the LAD wire was pulled back and placed into the diagonal branch and the diagonal wire was pulled back and placed down the left anterior descending artery. Following this, balloon dilatation was performed to the LAD. Because of transient slow flow in the diagonal branch, a 1.2 mm push balloon was advanced through the stent struts to dilate up this area in the ostial diagonal branch. Of note, a 2.0 mm balloon could not be advanced despite multiple efforts. Following this, the artery was assessed and the catheter and sheath were removed and hemostasis was obtained with a Vasc Band. The total contrast utilized was 215 cc of Omnipaque dye. The radiation exposure included 16.8 minutes of fluoro time. The air kerma radiation was 3875 milligray. The DAP radiation was 20,906 microgray per meter squared. RESULTS: CORONARY ARTERIOGRAPHY: A. Right coronary artery - the right coronary artery was a dominant vessel supplying multiple acute marginal branches, a posterior descending artery and 2 smaller posterior left ventricular branches. The proximal portion of the right coronary artery had a 40% narrowing seen. There were mild luminal irregularities seen in the mid segment. The distal portion of the vessel had no significant disease throughout the course. The PDA had a very mild 30% to 35 % mid lesion. B. Left coronary artery: 1. Left main - widely patent. 2. Left anterior descending artery. The left anterior descending artery had mild luminal irregularities in its proximal portion with calcium present and luminal reduction of approximately 15% to 20%. The mid segment of the left anterior descending artery after the septal consulting group analyst had a critical 90% to 95 % lesion seen just prior to the takeoff of the diagonal branch. The LAD continued to the apical region and slightly onto the distal inferior wall. The mid diagonal branch had mild disease in its proximal portion with the degree of luminal narrowing noted to be approximately 20% to 25%. A first posteriorly directed diagonal branch had an ostial narrowing of 65%. 3. Circumflex artery - a nondominant vessel supplying a thin first and second obtuse marginal branch with a moderate size third obtuse marginal branch. The ostium and the circumflex had narrowing of approximately 45% to 50% . Past this point, there was mild disease in the third obtuse marginal branch of approximately 25% to 30%. INTERVENTION INTO MID LEFT ANTERIOR DESCENDING ARTERY: Successful reduction of critical 90 to 95% blockage with primary stenting utilizing a 2.75 x 16 mm long Rebel bare-metal stent postdilated to 3.1 to 3.2 mm with TAMI 3 flow, no dissection seen, and 0% residual stenosis. Of note, there was transient compromise to the diagonal branch, which improved with intracoronary nitroglycerin as well as balloon angioplasty of the origin of the diagonal branch. TAMI 3 flow in the diagonal branch was noted as well as in the LAD. OVERALL ASSESSMENT: Successful intervention into mid LAD as described above with primary stenting with a 2.75 x 16 mm long Rebel bare-metal stent postdilated to 3.1 to 3.2 mm. The patient should be maintained on dual antiplatelet with ticagrelor at this point for at least a month since his chemotherapeutic session will not start until approximately 3 to 4 weeks from now. Consideration could be made toward continuing him on the ticagrelor and watching his platelet counts carefully during the institution of the session or potentially stopping him after a good 4 weeks of dual antiplatelet therapy has been present. Clearly, given his high-risk presentation, the latter is not the best recommendation. Standard guide-lines recommend for [id number] myocardial infarctions at least 6 to 8 months of dual antiplatelet therapy. The patient should have high- dose statin therapy and we will start 80 mg of atorvastatin immediately. [id number]/[facility] #: [id number] [facility]
[2018-09-11 15:39] LABS: Urine Appearance Clear; Urine Bilirubin Negative (Negative); Urine Blood Negative (Negative); Urine Color Yellow; Urine Glucose Negative (Negative); Urine Ketones Negative (Negative); Urine Nitrite Negative (Negative); Urine Protein Negative (Negative); Urine Specific Gravity 1.059 (1.010-1.030); Urine Urobilinogen Negative (Negative)
[2018-09-11 16:08] LABS: CKMB ng/mL 67.2 ng/mL (0.6-6.3); Creatine Kinase 347 U/L (10-223)
[2018-09-11 16:12] LABS: Troponin I 10.11 ng/mL (<0.04)
[2018-09-11] MEDS ORDERED: Atorvastatin* 80 MG TAB PO SCH (17:00)
[2018-09-11] MEDS: Latanoprost 0.005%* 2.5 ml BTL BOTH EYES SCH (19:55)
[2018-09-11] MEDS: Folic Acid TAB* 1 MG PO SCH (21:28)
[2018-09-11] MEDS: Citalopram TAB* 20 MG PO SCH (21:28)
[2018-09-11] MEDS: Metoprolol Tartrate TAB* 25 MG PO SCH (21:29)
[2018-09-11] MEDS: Olopatadine 0.1% OPHTH (NF) 1 DROP BTL BOTH EYES SCH (21:32)
[2018-09-11] MEDS: Ticagrelor* 90 MG TAB PO SCH (21:36)
[2018-09-11 23:53] LABS: Creatine Kinase 240 U/L (10-223)
[2018-09-11 23:57] LABS: Troponin I 6.74 ng/mL (<0.04)
[2018-09-11 23:58] LABS: CKMB ng/mL 34.9 ng/mL (0.6-6.3)
[2018-09-12] MEDS: NS 0.9% 1000 ML** 1,000 ML IV SCH (00:12)
[2018-09-12 04:00] LABS: Creatine Kinase 177 U/L (10-223)
[2018-09-12 04:06] LABS: CKMB ng/mL 23.1 ng/mL (0.6-6.3)
[2018-09-12 04:10] LABS: Troponin I 6.29 ng/mL (<0.04)
[2018-09-12 05:45] LABS: ABS Basophils 0.1 10^3/ul (0-0.2); ABS Monocytes 0.6 10^3/ul (0-0.8); ABS Neutrophils 3.3 10^3/ul (1.5-7.7); Eosinophil % 0.5 %; Hematocrit 34 % (42-52); Hemoglobin 12.2 g/dL (14.0-18.0); Lymphocyte % 20.7 %; Mean Corpuscular HGB Conc 35 g/dL (31-36); Mean Corpuscular Hemoglobin 35 pg (27-31); Mean Corpuscular Volume 99 fL (80-94); Mean Platelet Volume 8.3 fL (7.4-10.4); Nucleated Red Blood Cells % 0.1; Platelet Count 157 10^3/uL (150-450); Red Blood Count 3.47 10^6 /uL (4.18-5.48); Red Cell Distribution Width 14 % (10.5-15); White Blood Count 5.1 10^3/uL (3.5-10.8)
[2018-09-12 06:01] LABS: Albumin/Globulin Ratio 1.1 (1-3); BUN/Creatinine Ratio 11.1 (8-20); Calcium 8.6 mg/dL (8.6-10.3); EGFR African American 128.4 (>60); EGFR Non-African American 106.1 (>60); Globulin 2.7 g/dL (2-4); HDL Cholesterol 47.9 mg/dL; Potassium 4.1 mmol/L (3.5-5.0); Total Bilirubin 1.2 mg/dL (0.2-1.0); Total Protein 5.7 g/dL (6.4-8.9)
[2018-09-12] MEDS: Captopril TAB* 12.5 MG PO SCH (08:38)
[2018-09-12] MEDS: Aspirin 81 mg CHEW TAB* 81 MG TAB.CHEW PO SCH (08:39)
[2018-09-12] MEDS: Metoprolol Tartrate TAB* 25 MG PO SCH ×2 (08:39→20:52)
[2018-09-12] MEDS: Ticagrelor* 90 MG TAB PO SCH ×2 (08:39→20:52)
[2018-09-12] MEDS: Olopatadine 0.1% OPHTH (NF) 1 DROP BTL BOTH EYES SCH ×2 (09:12→20:56)
--- NOTE | 2018-09-12 09:52 | PN ---
<April Tello - Last Filed: 09/12/18 09:46> Subjective Date of Service: 09/12/18 - s/p NSTEMI BERNARD/LAD Interval History: No events last night, patient offers no complaints. Denies recurrent c/o sternal chest pain or SOB. NO c/o lightheadedness, palpitations, sensation of heart racing, dizziness or dyspnea. Medications Active Medications: Acetaminophen (Tylenol Tab*) 650 mg PO Q4H PRN PRN Reason: HEADACHE/PAIN Last Admin: 09/12/18 00:14 Dose: 650 mg Aspirin (Aspirin 81 Mg Chew Tab*) 81 mg PO DAILY [facility] Last Admin: 09/12/18 08:39 Dose: 81 mg Atorvastatin Calcium (Lipitor*) 80 mg PO 1700 [facility] Captopril (Capoten Tab*) 6.25 mg PO TID [facility] Last Admin: 09/12/18 08:38 Dose: 6.25 mg Citalopram Hydrobromide (Celexa Tab*) 20 mg PO BEDTIME [facility] Last Admin: 09/11/18 21:28 Dose: 20 mg Docusate Sodium (Colace Cap*) 100 mg PO DAILY PRN PRN Reason: CONSTIPATION Folic Acid (Folvite Tab*) 2 mg PO BEDTIME [facility] Last Admin: 09/11/18 21:28 Dose: 2 mg Nitroglycerin/Dextrose (Nitroglycerin Drip*) 25,000 mcg in 250 mls @ 3 mls/hr IV .PER PARAMETERS [facility]; Protocol Last Admin: 09/11/18 10:20 Dose: 3 mls/hr Latanoprost (Xalatan 0.005%*) 1 drop BOTH EYES 1930 [facility] Last Admin: 09/11/18 19:55 Dose: 1 drop Metoprolol Tartrate (Lopressor Tab*) 12.5 mg PO Q12HR [facility] Last Admin: 09/12/18 08:39 Dose: 12.5 mg Nitroglycerin (Nitroglycerin Tab 0.4 Mg*) 0.4 mg SL Q5M PRN PRN Reason: ANGINA Olopatadine HCl (Patanol 0.1% Ophth (Nf)) 1 drop BOTH EYES BID [facility]; Protocol Last Admin: 09/12/18 09:12 Dose: Not Given Ondansetron HCl (Zofran Inj*) 4 mg IV Q4H PRN PRN Reason: NAUSEA Ticagrelor (Brilinta*) 90 mg PO BID [facility] Last Admin: 09/12/18 08:39 Dose: 90 mg Objective Vital Signs: Temp Pulse Resp BP Pulse Ox 97.8 F 61 15 117/47 95 09/12/18 03:52 09/12/18 06:01 09/12/18 06:01 09/12/18 06:00 09/12/18 06:01 Oxygen Devices in Use Now: None Appearance: A+O x3, cooperative with exam Ears/Nose/Mouth/Throat: Mucous Membranes Moist Neck: NL Appearance and Movements; NL JVP, Trachea Midline Respiratory: Symmetrical Chest Expansion and Respiratory Effort, Clear to Auscultation Cardiovascular: NL Sounds; No Murmurs; No JVD, No Edema, - - right radial access site is intact, no evidence of hematoma. non tender to palpation. cap refill <3 seconds. Extremities: No Edema Neurological: Alert and Oriented x 3 Lines/Tubes/Other Access: Clean, Dry and Intact Peripheral IV Laboratory Results: 09/12/18 05:30 09/12/18 05:30 INR (Anticoag Therapy) 1.22 (0.82-1.09) H 09/11/18 06:47 APTT 31.7 seconds (26.0-36.3) 09/11/18 06:47 Total Bilirubin 1.20 mg/dL (0.2-1.0) H 09/12/18 05:30 AST 53 U/L (13-39) H 09/12/18 05:30 ALT 36 U/L (7-52) 09/12/18 05:30 Alkaline Phosphatase 85 U/L (34-104) 09/12/18 05:30 CK-MB (CK-2) 23.1 ng/mL (0.6-6.3) H 09/12/18 03:30 B-Natriuretic Peptide 125 pg/mL (<=100) H 09/11/18 06:47 Total Protein 5.7 g/dL (6.4-8.9) L 09/12/18 05:30 Albumin 3.0 g/dL (3.2-5.2) L 09/12/18 05:30 Globulin 2.7 g/dL (2-4) 09/12/18 05:30 Albumin/Globulin Ratio 1.1 (1-3) 09/12/18 05:30 Triglycerides 64 mg/dL 09/12/18 05:30 Cholesterol 128 mg/dL 09/12/18 05:30 LDL Cholesterol 67 mg/dL 09/12/18 05:30 HDL Cholesterol 47.9 mg/dL 09/12/18 05:30 09/11/18 09/11/18 09/11/18 06:47 09:29 15:30 Troponin I 1.45 H* 2.42 H* 10.11 H* 09/11/18 09/12/18 23:20 03:30 Troponin I 6.74 H* 6.29 H* Laboratory Results - last 24 hr 09/11/18 09/11/18 09/11/18 06:47 09:29 11:28 WBC RBC Hgb Hct MCV MCH MCHC RDW Plt Count MPV Neut % (Auto) Lymph % (Auto) [place] % (Auto) Eos % (Auto) Baso % (Auto) Absolute Neuts (auto) Absolute Lymphs (auto) Absolute Monos (auto) Absolute Eos (auto) Absolute Basos (auto) Absolute Nucleated RBC Nucleated RBC % POC Activ Clotting Time 180 Sodium 134 L Potassium 4.0 Chloride 100 L Carbon Dioxide 24 Anion Gap 10 BUN 10 Creatinine 0.76 Est GFR ( Amer) 120.7 Est GFR (Non-Af Amer) 99.7 BUN/Creatinine Ratio 13.2 Glucose 138 H Calcium 9.5 Total Bilirubin 1.20 H AST 70 H ALT 49 Alkaline Phosphatase 103 Total Creatine Kinase 145 CK-MB (CK-2) 24.1 H Troponin I 1.45 H* 2.42 H* C-Reactive Protein 9.42 H Total Protein 7.0 Albumin 3.7 Globulin 3.3 Albumin/Globulin Ratio 1.1 Triglycerides Cholesterol LDL Cholesterol HDL Cholesterol Urine Color Urine Appearance Urine pH Ur Specific [place] Urine Protein Urine Ketones Urine Blood Urine Nitrate Urine Bilirubin Urine Urobilinogen Ur Leukocyte Esterase Urine Glucose 09/11/18 09/11/18 09/11/18 15:21 15:30 23:20 WBC RBC Hgb Hct MCV MCH MCHC RDW Plt Count MPV Neut % (Auto) Lymph % (Auto) [place] % (Auto) Eos % (Auto) Baso % (Auto) Absolute Neuts (auto) Absolute Lymphs (auto) Absolute Monos (auto) Absolute Eos (auto) Absolute Basos (auto) Absolute Nucleated RBC Nucleated RBC % POC Activ Clotting Time Sodium Potassium Chloride Carbon Dioxide Anion Gap BUN Creatinine Est GFR ( Amer) Est GFR (Non-Af Amer) BUN/Creatinine Ratio Glucose Calcium Total Bilirubin AST ALT Alkaline Phosphatase Total Creatine Kinase 347 H 240 H CK-MB (CK-2) 67.2 H 34.9 H Troponin I 10.11 H* 6.74 H* C-Reactive Protein Total Protein Albumin Globulin Albumin/Globulin Ratio Triglycerides Cholesterol LDL Cholesterol HDL Cholesterol Urine Color Yellow Urine Appearance Clear Urine pH 7.0 Ur Specific [place] 1.059 H Urine Protein Negative Urine Ketones Negative Urine Blood Negative Urine Nitrate Negative Urine Bilirubin Negative Urine Urobilinogen Negative Ur Leukocyte Esterase Negative Urine Glucose Negative 09/12/18 09/12/18 09/12/18 03:30 05:30 05:30 WBC 5.1 RBC 3.47 L Hgb 12.2 L Hct 34 L MCV 99 H MCH 35 H MCHC 35 RDW 14 Plt Count 157 MPV 8.3 Neut % (Auto) 65.3 Lymph % (Auto) 20.7 [place] % (Auto) 12.5 Eos % (Auto) 0.5 Baso % (Auto) 1.0 Absolute Neuts (auto) 3.3 Absolute Lymphs (auto) 1.0 Absolute Monos (auto) 0.6 Absolute Eos (auto) 0.0 Absolute Basos (auto) 0.1 Absolute Nucleated RBC 0.0 Nucleated RBC % 0.1 POC Activ Clotting Time Sodium 136 Potassium 4.1 Chloride 105 Carbon Dioxide 26 Anion Gap 5 BUN 8 Creatinine 0.72 Est GFR ( Amer) 128.4 Est GFR (Non-Af Amer) 106.1 BUN/Creatinine Ratio 11.1 Glucose 109 H Calcium 8.6 Total Bilirubin 1.20 H AST 53 H ALT 36 Alkaline Phosphatase 85 Total Creatine Kinase 177 CK-MB (CK-2) 23.1 H Troponin I 6.29 H* C-Reactive Protein Total Protein 5.7 L Albumin 3.0 L Globulin 2.7 Albumin/Globulin Ratio 1.1 Triglycerides 64 Cholesterol 128 LDL Cholesterol 67 HDL Cholesterol 47.9 Urine Color Urine Appearance Urine pH Ur Specific [place] Urine Protein Urine Ketones Urine Blood Urine Nitrate Urine Bilirubin Urine Urobilinogen Ur Leukocyte Esterase Urine Glucose Diagnostic Imagin09/11/2018 Study data: Transthoracic echocardiogram. Procedure: Transthoracic echocardiography was performed. Image quality was good. Complete 2D, spectral Doppler, and color flow Doppler. Location: Emergency department. Patient status: Inpatient. Patient room number: 12. Study status: Stat. Rhythm: Normal sinus rhythm. Findings Left ventricle: The cavity size is normal. Wall thickness is mildly increased. Systolic function is at the lower limits of normal. The estimated ejection fraction is 50-55%. Regional wall motion abnormalities: Hypokinesis of the apical myocardium. Hypokinesis of the distal anteroseptal, anterior, and inferior myocardium. Doppler parameters are consistent with abnormal left ventricular relaxation (grade 1 diastolic dysfunction). Right ventricle: The cavity size is normal. Systolic function is normal. Left atrium: The atrium is mildly dilated. Right atrium: The atrium is normal in size. Mitral valve: The annulus is mildly calcified. The leaflets are mildly thickened. There is no evidence of stenosis. There is mild to moderate regurgitation. Aortic valve: The valve is probably trileaflet. The leaflets are normal thickness. There is no evidence of stenosis. There is mild regurgitation. Tricuspid valve: The leaflets are normal thickness. There is no evidence of stenosis. There is no significant regurgitation. Pulmonic valve: Not well visualized. There is no significant regurgitation. Aorta: Aortic root: The aortic root is upper normal in size. Ascending aorta: The ascending aorta is appears normal. Aortic arch: The aortic arch is mildly dilated. Pericardium: A trivial pericardial effusion is identified. Pulmonary arteries: Not well visualized. Systemic veins: Inferior vena cava: The vessel is normal in size. The respirophasic diameter changes are in the normal range (>= 50%). Measurements Left ventricle Value Ref Aortic valve Value Ref NARCISO, LAX 5.4 cm 4.2 - 5.8 Jane diam, ED 2.4 cm ---- ESD, LAX (H) 4.2 cm 2.5 - 4.0 Peak v, S 1.42 m/sec ---- This report is only to be considered final once signed by the Provider(s) as displayed in the "<Electronically Signed by >" field (s). Absence of a signature indicates the report is in a draft status and still needs to be finalized. In the event this document was created by someone other than the signing Provider, the individual initiating the document will be listed in the "Entered by:" or "Dictated by:" brunner. EKG Data: 09/12/2018; pending. Sinus rhythm with incomplete RBBB rate 62. Anterior tw inversion with biphasic lateral TW abnormalities. Assessment/Plan #1 NSTEMI 09/11/2018; Troponin peaked at 10.1 09/11/2018. LVEF preserved on echo. s/p BMS/ mid LAD with moderate residual Lcx lesion. No recurrent c/o chest pain or SOB since PCI. On ASA 81/day, Brilinta 90mg Po BID, Lipitor 80 PO QHS, Lopressor 12.5mg PO BID. Ideally, given presentation of NSTEMI we would recommend DAPT for minimum 6 months. Patient will need to be on ASA 81/day and Brilinta 90mg Po BID for a minimum of 1 month. It would not be unreasonable to transition to Plavix 75mg/day with Aspirin 81mg/day after 30 days or discontinuing Brilinta and continuing aspirin 81/day after 30 days of DAPT depending on how patient reponds to second round of chemo which is to be given as planned on 09/18/2018. This chemo regimen did reduce Plts to 67,000 on 2018 thus he will need to be monitored closely now that he is on DAPT. #2 Newly diagnosed CAD; On ASA, statin and bblocker therapy. Will convert Captopril to Lisinopril and reduce to 2.5mg/day given relative hypotension. #3 h/o Large B cell lymphoma; to have second round of chemo 09/18/2018. Managed by Dr. Munguia. #4 Disposition pending course. Will follow, patient can be transferred to telemetry today. Full code. D/w Dr. Bolden who agrees with above plan of care. Patient has a free 30 day supply of Brilinta which is to be picked up from pharmacy today by ICU staff. Attending: Cathy Lu <Cathy Lu - Last Filed: 09/12/18 12:16> Medications Active Medications: Acetaminophen (Tylenol Tab*) 650 mg PO Q4H PRN PRN Reason: HEADACHE/PAIN Last Admin: 09/12/18 00:14 Dose: 650 mg Aspirin (Aspirin 81 Mg Chew Tab*) 81 mg PO DAILY [facility] Last Admin: 09/12/18 08:39 Dose: 81 mg Atorvastatin Calcium (Lipitor*) 80 mg PO 1700 [facility] Cephalexin HCl (Keflex Cap*) 500 mg PO TID [facility] Citalopram Hydrobromide (Celexa Tab*) 20 mg PO BEDTIME [facility] Last Admin: 09/11/18 21:28 Dose: 20 mg Docusate Sodium (Colace Cap*) 100 mg PO DAILY PRN PRN Reason: CONSTIPATION Folic Acid (Folvite Tab*) 2 mg PO BEDTIME [facility] Last Admin: 09/11/18 21:28 Dose: 2 mg Latanoprost (Xalatan 0.005%*) 1 drop BOTH EYES 1930 [facility] Last Admin: 09/11/18 19:55 Dose: 1 drop Lisinopril (Prinivil Tab*) 2.5 mg PO DAILY [facility] Metoprolol Tartrate (Lopressor Tab*) 12.5 mg PO Q12HR [facility] Last Admin: 09/12/18 08:39 Dose: 12.5 mg Nitroglycerin (Nitroglycerin Tab 0.4 Mg*) 0.4 mg SL Q5M PRN PRN Reason: ANGINA Olopatadine HCl (Patanol 0.1% Ophth (Nf)) 1 drop BOTH EYES BID [facility]; Protocol Last Admin: 09/12/18 09:12 Dose: Not Given Ondansetron HCl (Zofran Inj*) 4 mg IV Q4H PRN PRN Reason: NAUSEA Ticagrelor (Brilinta*) 90 mg PO BID [facility] Last Admin: 09/12/18 08:39 Dose: 90 mg Objective Vital Signs: Temp Pulse Resp BP Pulse Ox 97.8 F 65 16 113/60 95 09/12/18 03:52 09/12/18 11:00 09/12/18 11:00 09/12/18 11:00 09/12/18 11:00 Laboratory Results: 09/12/18 05:30 09/12/18 05:30 INR (Anticoag Therapy) 1.22 (0.82-1.09) H 09/11/18 06:47 APTT 31.7 seconds (26.0-36.3) 09/11/18 06:47 Total Bilirubin 1.20 mg/dL (0.2-1.0) H 09/12/18 05:30 AST 53 U/L (13-39) H 09/12/18 05:30 ALT 36 U/L (7-52) 09/12/18 05:30 Alkaline Phosphatase 85 U/L (34-104) 09/12/18 05:30 CK-MB (CK-2) 23.1 ng/mL (0.6-6.3) H 09/12/18 03:30 B-Natriuretic Peptide 125 pg/mL (<=100) H 09/11/18 06:47 Total Protein 5.7 g/dL (6.4-8.9) L 09/12/18 05:30 Albumin 3.0 g/dL (3.2-5.2) L 09/12/18 05:30 Globulin 2.7 g/dL (2-4) 09/12/18 05:30 Albumin/Globulin Ratio 1.1 (1-3) 09/12/18 05:30 Triglycerides 64 mg/dL 09/12/18 05:30 Cholesterol 128 mg/dL 09/12/18 05:30 LDL Cholesterol 67 mg/dL 09/12/18 05:30 HDL Cholesterol 47.9 mg/dL 09/12/18 05:30 09/11/18 09/11/18 09/11/18 06:47 09:29 15:30 Troponin I 1.45 H* 2.42 H* 10.11 H* 09/11/18 09/12/18 23:20 03:30 Troponin I 6.74 H* 6.29 H* Assessment/Plan 09.12.2018 12:15 PM: pt seen and examined. Case discussed at length with Dr Giang. Above plan of care d/w T[employer]ER April Tlelo. She discussed plan with Dr Munguia. Agree with above plan.
--- NOTE | 2018-09-12 10:42 | PN ---
Progress Note - Progress Note Date of Service: 09/12/18 SOAP: Subjective: [Admitted yesterday with NSTEMI, now s/p bare metal stent to the LAD. Troponin peaked overnight. He was up ambulating the unit this am and did several laps without c/o CP or SOB. He does report that the site of his bone marrow biopsy is sore and would like it looked at.] Objective: [ Acetaminophen (Tylenol Tab*) 650 mg PO Q4H PRN PRN Reason: HEADACHE/PAIN Last Admin: 09/12/18 00:14 Dose: 650 mg Aspirin (Aspirin 81 Mg Chew Tab*) 81 mg PO DAILY [facility] Last Admin: 09/12/18 08:39 Dose: 81 mg Atorvastatin Calcium (Lipitor*) 80 mg PO 1700 [facility] Citalopram Hydrobromide (Celexa Tab*) 20 mg PO BEDTIME [facility] Last Admin: 09/11/18 21:28 Dose: 20 mg Docusate Sodium (Colace Cap*) 100 mg PO DAILY PRN PRN Reason: CONSTIPATION Folic Acid (Folvite Tab*) 2 mg PO BEDTIME [facility] Last Admin: 09/11/18 21:28 Dose: 2 mg Latanoprost (Xalatan 0.005%*) 1 drop BOTH EYES 1930 [facility] Last Admin: 09/11/18 19:55 Dose: 1 drop Lisinopril (Prinivil Tab*) 2.5 mg PO DAILY [facility] Metoprolol Tartrate (Lopressor Tab*) 12.5 mg PO Q12HR [facility] Last Admin: 09/12/18 08:39 Dose: 12.5 mg Nitroglycerin (Nitroglycerin Tab 0.4 Mg*) 0.4 mg SL Q5M PRN PRN Reason: ANGINA Olopatadine HCl (Patanol 0.1% Ophth (Nf)) 1 drop BOTH EYES BID [facility]; Protocol Last Admin: 09/12/18 09:12 Dose: Not Given Ondansetron HCl (Zofran Inj*) 4 mg IV Q4H PRN PRN Reason: NAUSEA Ticagrelor (Brilinta*) 90 mg PO BID [facility] Last Admin: 09/12/18 08:39 Dose: 90 mg Laboratory Results - last 24 hr 09/11/18 09/11/18 09/11/18 06:47 11:28 15:21 WBC RBC Hgb Hct MCV MCH MCHC RDW Plt Count MPV Neut % (Auto) Lymph % (Auto) [place] % (Auto) Eos % (Auto) Baso % (Auto) Absolute Neuts (auto) Absolute Lymphs (auto) Absolute Monos (auto) Absolute Eos (auto) Absolute Basos (auto) Absolute Nucleated RBC Nucleated RBC % POC Activ Clotting Time 180 Sodium Potassium Chloride Carbon Dioxide Anion Gap BUN Creatinine Est GFR ( Amer) Est GFR (Non-Af Amer) BUN/Creatinine Ratio Glucose Calcium Total Bilirubin AST ALT Alkaline Phosphatase Total Creatine Kinase 145 CK-MB (CK-2) 24.1 H Troponin I Total Protein Albumin Globulin Albumin/Globulin Ratio Triglycerides Cholesterol LDL Cholesterol HDL Cholesterol Urine Color Yellow Urine Appearance Clear Urine pH 7.0 Ur Specific [place] 1.059 H Urine Protein Negative Urine Ketones Negative Urine Blood Negative Urine Nitrate Negative Urine Bilirubin Negative Urine Urobilinogen Negative Ur Leukocyte Esterase Negative Urine Glucose Negative 09/11/18 09/11/18 09/12/18 15:30 23:20 03:30 WBC RBC Hgb Hct MCV MCH MCHC RDW Plt Count MPV Neut % (Auto) Lymph % (Auto) [place] % (Auto) Eos % (Auto) Baso % (Auto) Absolute Neuts (auto) Absolute Lymphs (auto) Absolute Monos (auto) Absolute Eos (auto) Absolute Basos (auto) Absolute Nucleated RBC Nucleated RBC % POC Activ Clotting Time Sodium Potassium Chloride Carbon Dioxide Anion Gap BUN Creatinine Est GFR ( Amer) Est GFR (Non-Af Amer) BUN/Creatinine Ratio Glucose Calcium Total Bilirubin AST ALT Alkaline Phosphatase Total Creatine Kinase 347 H 240 H 177 CK-MB (CK-2) 67.2 H 34.9 H 23.1 H Troponin I 10.11 H* 6.74 H* 6.29 H* Total Protein Albumin Globulin Albumin/Globulin Ratio Triglycerides Cholesterol LDL Cholesterol HDL Cholesterol Urine Color Urine Appearance Urine pH Ur Specific [place] Urine Protein Urine Ketones Urine Blood Urine Nitrate Urine Bilirubin Urine Urobilinogen Ur Leukocyte Esterase Urine Glucose 09/12/18 09/12/18 05:30 05:30 WBC 5.1 RBC 3.47 L Hgb 12.2 L Hct 34 L MCV 99 H MCH 35 H MCHC 35 RDW 14 Plt Count 157 MPV 8.3 Neut % (Auto) 65.3 Lymph % (Auto) 20.7 [place] % (Auto) 12.5 Eos % (Auto) 0.5 Baso % (Auto) 1.0 Absolute Neuts (auto) 3.3 Absolute Lymphs (auto) 1.0 Absolute Monos (auto) 0.6 Absolute Eos (auto) 0.0 Absolute Basos (auto) 0.1 Absolute Nucleated RBC 0.0 Nucleated RBC % 0.1 POC Activ Clotting Time Sodium 136 Potassium 4.1 Chloride 105 Carbon Dioxide 26 Anion Gap 5 BUN 8 Creatinine 0.72 Est GFR ( Amer) 128.4 Est GFR (Non-Af Amer) 106.1 BUN/Creatinine Ratio 11.1 Glucose 109 H Calcium 8.6 Total Bilirubin 1.20 H AST 53 H ALT 36 Alkaline Phosphatase 85 Total Creatine Kinase CK-MB (CK-2) Troponin I Total Protein 5.7 L Albumin 3.0 L Globulin 2.7 Albumin/Globulin Ratio 1.1 Triglycerides 64 Cholesterol 128 LDL Cholesterol 67 HDL Cholesterol 47.9 Urine Color Urine Appearance Urine pH Ur Specific [place] Urine Protein Urine Ketones Urine Blood Urine Nitrate Urine Bilirubin Urine Urobilinogen Ur Leukocyte Esterase Urine Glucose Vital Signs: Temp Pulse Resp BP Pulse Ox 97.8 F 61 15 117/47 95 09/12/18 03:52 09/12/18 06:01 09/12/18 06:01 09/12/18 06:00 09/12/18 06:01 Exam: Gen: Well appearing 78 yo male in NAD, seated in a recliner HEENT: MMM Resp: CTA, no w/c/r CV: RRR, no m/r/g Abd: soft, nonTTP Ext: no edema Skin: Small pustule with minimal surrounding erythema over bone marrow biopsy site at L posterior hip Assessment: [78 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 Managing his antiplatelet therapy needs with chemotherapy may prove challenging. Given the aggressive stage and subtype of his lymphoma it is pertinent that chemotherapy continues with little interruption. Case was discussed with cardiology in detail.] Plan: [1. NSTEMI - s/p BMS to LAD - management per cardiology including, LAVERN-I, BB, statin, Brilinta and ASA - regarding antiplatelet therapy: plan for minimum 30d of Brilinta and ASA, after which patient can receive ASA alone or Plavix with ASA depending on his degree of thrombocytopenia - platelets nadired at 67K with C1 which would be an appropriate level to continue dual antiplatelet therapy 2. DLBCL - plan to continue with C2 of chemotherapy 09/18/18, which will be on schedule - will consider continuing adriamycin v exchanging for etoposide 3. Cellulitis - small pustule with limited surrounding cellulitis at site of recent bone marrow biospy - start oral Keflex and continue for a total of 10d Dispo: anticipate dc home tomorrow, transfer to telemetry floor today ]
[2018-09-12] MEDS: Cephalexin CAP* 500 MG PO SCH ×2 (14:45→20:52)
[2018-09-12] MEDS ORDERED: Atorvastatin* 80 MG TAB PO SCH (17:00)
[2018-09-12] MEDS: Latanoprost 0.005%* 2.5 ml BTL BOTH EYES SCH (19:25)
[2018-09-12] MEDS: Folic Acid TAB* 1 MG PO SCH (20:52)
[2018-09-12] MEDS: Citalopram TAB* 20 MG PO SCH (20:52)
[2018-09-13 04:37] LABS: ABS Lymphocytes 1.2 10^3/ul (1.0-4.8); ABS Monocytes 0.8 10^3/ul (0-0.8); ABS Neutrophils 3.6 10^3/ul (1.5-7.7); Eosinophil % 0.7 %; Hematocrit 36 % (42-52); Hemoglobin 12.4 g/dL (14.0-18.0); Lymphocyte % 20.5 %; Mean Corpuscular HGB Conc 35 g/dL (31-36); Mean Corpuscular Hemoglobin 35 pg (27-31); Mean Corpuscular Volume 100 fL (80-94); Mean Platelet Volume 8.4 fL (7.4-10.4); Nucleated Red Blood Cells % 0.1; Platelet Count 186 10^3/uL (150-450); Red Blood Count 3.57 10^6 /uL (4.18-5.48); Red Cell Distribution Width 14 % (10.5-15); White Blood Count 5.6 10^3/uL (3.5-10.8)
[2018-09-13 04:50] LABS: BUN/Creatinine Ratio 15.9 (8-20); EGFR African American 134.9 (>60); EGFR Non-African American 111.5 (>60); Magnesium 1.8 mg/dL (1.9-2.7); Potassium 4.1 mmol/L (3.5-5.0)
[2018-09-13] MEDS: Olopatadine 0.1% OPHTH (NF) 1 DROP BTL BOTH EYES SCH (08:52)
[2018-09-13] MEDS: Metoprolol Tartrate TAB* 25 MG PO SCH (08:53)
[2018-09-13] MEDS: Cephalexin CAP* 500 MG PO SCH ×2 (08:54→15:05)
[2018-09-13] MEDS: Aspirin 81 mg CHEW TAB* 81 MG TAB.CHEW PO SCH (08:54)
[2018-09-13] MEDS: Ticagrelor* 90 MG TAB PO SCH (08:55)
[2018-09-13] MEDS ORDERED: Lisinopril TAB* 5 MG PO SCH (09:00)
--- NOTE | 2018-09-13 11:07 | PN ---
Progress Note - Progress Note Date of Service: 09/13/18 SOAP: Subjective: []Feels well today and wants to go home. No chest pain, no SOB. Acetaminophen (Tylenol Tab*) 650 mg PO Q4H PRN PRN Reason: HEADACHE/PAIN Last Admin: 09/12/18 00:14 Dose: 650 mg Aspirin (Aspirin 81 Mg Chew Tab*) 81 mg PO DAILY [facility] Last Admin: 09/13/18 08:54 Dose: 81 mg Atorvastatin Calcium (Lipitor*) 80 mg PO 1700 [facility] Last Admin: 09/12/18 18:19 Dose: 80 mg Cephalexin HCl (Keflex Cap*) 500 mg PO TID [facility] Last Admin: 09/13/18 08:54 Dose: 500 mg Citalopram Hydrobromide (Celexa Tab*) 20 mg PO BEDTIME [facility] Last Admin: 09/12/18 20:52 Dose: 20 mg Docusate Sodium (Colace Cap*) 100 mg PO DAILY PRN PRN Reason: CONSTIPATION Folic Acid (Folvite Tab*) 2 mg PO BEDTIME [facility] Last Admin: 09/12/18 20:52 Dose: 2 mg Latanoprost (Xalatan 0.005%*) 1 drop BOTH EYES 1930 [facility] Last Admin: 09/12/18 19:25 Dose: 1 drop Lisinopril (Prinivil Tab*) 2.5 mg PO DAILY [facility] Last Admin: 09/13/18 08:54 Dose: 2.5 mg Metoprolol Tartrate (Lopressor Tab*) 12.5 mg PO Q12HR [facility] Last Admin: 09/13/18 08:53 Dose: 12.5 mg Nitroglycerin (Nitroglycerin Tab 0.4 Mg*) 0.4 mg SL Q5M PRN PRN Reason: ANGINA Olopatadine HCl (Patanol 0.1% Ophth (Nf)) 1 drop BOTH EYES BID [facility]; Protocol Last Admin: 09/13/18 08:52 Dose: Not Given Ondansetron HCl (Zofran Inj*) 4 mg IV Q4H PRN PRN Reason: NAUSEA Ticagrelor (Brilinta*) 90 mg PO BID [facility] Last Admin: 09/13/18 08:55 Dose: 90 mg Objective: [] Vital Signs Temp Pulse Resp BP Pulse Ox 97.8 F 57 18 111/53 96 09/13/18 04:17 09/13/18 04:17 09/13/18 06:32 09/13/18 04:17 09/13/18 04:17 Exam: Gen: Well appearing 78 yo male in NAD, seated in a recliner HEENT: MMM Resp: CTA, no w/c/r CV: RRR, no m/r/g Abd: soft, nonTTP Ext: no edema Skin: site of BMbx looks a little better, no puss Assessment: [78 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 Managing his antiplatelet therapy needs with chemotherapy may prove challenging. Case was discussed with cardiology. Chest pain free and will be discharged today with follow up early next week with Dr. Munguia to plan additional chemotherapy.] Plan: [1. NSTEMI - s/p BMS to LAD - management per cardiology including, LAVERN-I, BB, statin, Brilinta and ASA - regarding antiplatelet therapy: plan for minimum 30d of Brilinta and ASA, after which patient can receive ASA alone or Plavix with ASA depending on his degree of thrombocytopenia - platelets nadired at 67K with C1 which would be an appropriate level to continue dual antiplatelet therapy 2. DLBCL - plan to continue with C2 of chemotherapy 09/18/18, which will be on schedule - follow up Dr. Munguia early next week 3. Cellulitis. Looks a little better. - Keflex and continue for a total of 10d 4. Disp: home after seen by Dr Zamorano. ]
[2018-09-13] MEDS ORDERED: Magnesium Sulfate 2 GM IV* 2 GM/50 ML BAG IVPB ONE (11:08)
--- NOTE | 2018-09-13 12:02 | PN ---
Subjective Date of Service: 09/13/18 - CC: CP, NQMI post stent Interval History: No further anginal pain. No SOB. Wrist/cath site w/o pain or problems. Medications Active Medications: Acetaminophen (Tylenol Tab*) 650 mg PO Q4H PRN PRN Reason: HEADACHE/PAIN Last Admin: 09/12/18 00:14 Dose: 650 mg Aspirin (Aspirin 81 Mg Chew Tab*) 81 mg PO DAILY [facility] Last Admin: 09/13/18 08:54 Dose: 81 mg Atorvastatin Calcium (Lipitor*) 80 mg PO 1700 [facility] Last Admin: 09/12/18 18:19 Dose: 80 mg Cephalexin HCl (Keflex Cap*) 500 mg PO TID [facility] Last Admin: 09/13/18 08:54 Dose: 500 mg Citalopram Hydrobromide (Celexa Tab*) 20 mg PO BEDTIME [facility] Last Admin: 09/12/18 20:52 Dose: 20 mg Docusate Sodium (Colace Cap*) 100 mg PO DAILY PRN PRN Reason: CONSTIPATION Folic Acid (Folvite Tab*) 2 mg PO BEDTIME [facility] Last Admin: 09/12/18 20:52 Dose: 2 mg Magnesium Sulfate (Magnesium Sulfate 2 Gm Iv*) 2 gm in 50 mls @ 50 mls/hr IVPB ONCE ONE Stop: 09/13/18 12:07 Last Admin: 09/13/18 11:27 Dose: 50 mls/hr Latanoprost (Xalatan 0.005%*) 1 drop BOTH EYES 1930 [facility] Last Admin: 09/12/18 19:25 Dose: 1 drop Lisinopril (Prinivil Tab*) 2.5 mg PO DAILY [facility] Last Admin: 09/13/18 08:54 Dose: 2.5 mg Metoprolol Tartrate (Lopressor Tab*) 12.5 mg PO Q12HR [facility] Last Admin: 09/13/18 08:53 Dose: 12.5 mg Nitroglycerin (Nitroglycerin Tab 0.4 Mg*) 0.4 mg SL Q5M PRN PRN Reason: ANGINA Olopatadine HCl (Patanol 0.1% Ophth (Nf)) 1 drop BOTH EYES BID [facility]; Protocol Last Admin: 09/13/18 08:52 Dose: Not Given Ondansetron HCl (Zofran Inj*) 4 mg IV Q4H PRN PRN Reason: NAUSEA Ticagrelor (Brilinta*) 90 mg PO BID [facility] Last Admin: 09/13/18 08:55 Dose: 90 mg Objective Vital Signs: Temp Pulse Resp BP Pulse Ox 97.8 F 57 18 111/53 96 09/13/18 04:17 09/13/18 04:17 09/13/18 06:32 09/13/18 04:17 09/13/18 04:17 Oxygen Devices in Use Now: None Appearance: Older gentleman, lying in bed, appears fit, vigorous. Eyes: No Scleral Icterus, PERRLA Ears/Nose/Mouth/Throat: Mucous Membranes Moist Neck: NL Appearance and Movements; NL JVP, Trachea Midline Respiratory: Symmetrical Chest Expansion and Respiratory Effort, Clear to Auscultation Cardiovascular: NL Sounds; No Murmurs; No JVD, No Edema, - - ? trace murmur apex. Abdominal: NL Sounds; No Tenderness; No Distention, No Hepatosplenomegaly Extremities: No Edema Skin: - - right wrist cath site: no hematoma, excellent distal pulse. Neurological: Alert and Oriented x 3 Lines/Tubes/Other Access: Clean, Dry and Intact Peripheral IV Laboratory Results: 09/13/18 04:15 09/13/18 04:15 INR (Anticoag Therapy) 1.22 (0.82-1.09) H 09/11/18 06:47 APTT 31.7 seconds (26.0-36.3) 09/11/18 06:47 Total Bilirubin 1.20 mg/dL (0.2-1.0) H 09/12/18 05:30 AST 53 U/L (13-39) H 09/12/18 05:30 ALT 36 U/L (7-52) 09/12/18 05:30 Alkaline Phosphatase 85 U/L (34-104) 09/12/18 05:30 CK-MB (CK-2) 23.1 ng/mL (0.6-6.3) H 09/12/18 03:30 B-Natriuretic Peptide 125 pg/mL (<=100) H 09/11/18 06:47 Total Protein 5.7 g/dL (6.4-8.9) L 09/12/18 05:30 Albumin 3.0 g/dL (3.2-5.2) L 09/12/18 05:30 Globulin 2.7 g/dL (2-4) 09/12/18 05:30 Albumin/Globulin Ratio 1.1 (1-3) 09/12/18 05:30 Triglycerides 64 mg/dL 09/12/18 05:30 Cholesterol 128 mg/dL 09/12/18 05:30 LDL Cholesterol 67 mg/dL 09/12/18 05:30 HDL Cholesterol 47.9 mg/dL 09/12/18 05:30 09/11/18 09/11/18 09/11/18 06:47 09:29 15:30 Troponin I 1.45 H* 2.42 H* 10.11 H* 09/11/18 09/12/18 23:20 03:30 Troponin I 6.74 H* 6.29 H* Diagnostic Imagin09/11/2018 Study data: Transthoracic echocardiogram. The ejection fraction is 50-55%. Hypokinesis of the apical myocardium. Hypokinesis of the distal anteroseptal, anterior, and inferior myocardium. (grade 1 diastolic dysfunction). There is mild to moderate regurgitation. Cardiac Catheterization Report 09/12/18 PROCEDURE: Coronary arteriography, primary stenting of the mid left anterior descending artery utilizing a 2.75 x 16 mm long Rebel bare-metal stent postdilated 3.1 to 3.2 mm with high pressure balloon inflation. Mild to moderate disease noted in other vessels on medical management, see full report. EKG Data: Monitor: NSR, RBBB Assessment/Plan 78 yo franklin with B cell lymphoma admitted with NSTEMI, s/p stent to LAD, on medical management for Cx disease and more. CP free. CAD: -CP free, stable and OK for discharge. 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 -Continue ASA, Brilinta, pt aware of importance of compliance. -Continue statin and metoprolol. -I discussed benefits of cardiac rehab, can set up at out patient appointments. -Needs wound check in 1 week, full office visit with Dr Lu in a month. B cell lymphoma: Follows with Dr Munguia.
[2018-09-13 15:36] VITALS: BP 120/55
--- NOTE | 2018-09-13 20:17 | DS ---
DISCHARGE SUMMARY: DATE OF ADMISSION: 09/11/18 DATE OF DISCHARGE: 09/13/18 DISCHARGE DIAGNOSES: 1. Myocardial infarction. Acute stenosis of left anterior descending artery at 95%. 2. Diffuse large B-cell lymphoma, presented day #16, cycle 1, R-CHOP chemotherapy. HOSPITAL COURSE: Came in with acute chest pain. He was found to have a non-ST- wall myocardial infa rction with elevated troponin. He had an echocardiogram that showed a normal EF and focal wall motio n abnormalities. First troponin was 1.45 at 0647 on 09/11/18, then 2.42 at 0929. Blood counts were stable on presentation. The white count of 4.9, normal differential, hemoglobin 14, and platelets of 156. Platelets elise on cycle 1 of chemotherapy was 65. He was taken to the laboratory assistant at [address] Giang. He was found to have 95% occlusion of the left anterior descending artery. A 2.75 x 16 mm REBEL bare-metal stent was placed with TAMI flow of 3 after the procedure. He tolerated the procedur e well without significant complications. His troponin was 10.11 immediately following catheterizati on and 6.45 at 11 o'clock last night and 6.29 yesterday morning. He has had no chest pain since the catheterization. He feels very well, eating well. No shortness of breath, no nausea, bowels are mov ing well. No fevers or chills. Extensive conversation about continued treatment for his lymphoma, currently on the chemotherapy sche dule for . Tentative plan is to proceed with chemotherapy using etoposide instead of Adriamy chantal for CHOP. He will need to continue dual platelet therapy for a minimum of 6 weeks and preferably 6 months. MEDICATIONS ON DISCHARGE: 1. Acetaminophen 325 mg q.4 hours p.r.n. 2. Aspirin 81 mg a day. 3. Lipitor 80 mg p.o. daily. 4. Keflex 500 t.i.d. for 10 days. 5. Celexa 20 mg p.o. daily. 6. Colace 100 mg daily. 7. Folic acid 2 mg daily. 8. Lisinopril 2.5 mg p.o. daily. 9. Metoprolol 12.5 mg q.12 b.i.d. 10. Nitroglycerin 0.4 mg sublingual q.5 p.r.n. chest pain. 11. Brilinta 90 mg p.o. b.i.d. ADDENDUM: He had an erythema at the site of his prior bone marrow biopsy. He will go home on Keflex . He is going to call me after he gets home with any questions or concerns. Specifically, he is to call me with shortness of breath, chest pain, dizziness, or nausea. FOLLOWUP: Either Saturday or Saturday with Dr. Munguia. [id number]/[facility] #: [id number]
== END 2018-09-13 15:33 | disposition home or self-care (01) | DRG 249 ==
LOC: ED 06:27 → ICU 12:28 → MEDTELE 09-12 10:32
PROVIDERS: ADMIT Internal Medicine Cardiovascular Disease; ATTEND Internal Medicine Hematology & Oncology
PROC: B2111ZZ Fluoroscopy of Multiple Coronary Arteries using Low Osmolar Contrast (ICD-10-PCS; 2018-09-11)
PROC: 02703DZ Dilation of Coronary Artery, One Artery with Intraluminal Device, Percutaneous Approach (ICD-10-PCS; principal; 2018-09-11 10:00)
DX: I21.4 Non-ST elevation (NSTEMI) myocardial infarction (principal); C83.31 Diffuse large B-cell lymphoma, lymph nodes of head, face, and neck; L03.818 Cellulitis of other sites; E78.00 Pure hypercholesterolemia, unspecified; M06.9 Rheumatoid arthritis, unspecified; E78.5 Hyperlipidemia, unspecified; D69.6 Thrombocytopenia, unspecified; M19.90 Unspecified osteoarthritis, unspecified site; I25.10 Atherosclerotic heart disease of native coronary artery without angina pectoris; I45.10 Unspecified right bundle-branch block; H40.9 Unspecified glaucoma; Z82.49 Family history of ischemic heart disease and other diseases of the circulatory system; Z86.19 Personal history of other infectious and parasitic diseases; Z98.42 Cataract extraction status, left eye; Z98.41 Cataract extraction status, right eye; Z79.82 Long term (current) use of aspirin; Z79.01 Long term (current) use of anticoagulants
CPT/HCPCS: 36415; 71045; 71275; 76937; 80048; 80053; 80061; 81003; 82550; 82553; 83605; 83735; 83880; 84484; 85025; 85347; 85379; 85610; 85730; 86140; 87641; 93005; 93306; 93454; 99223; 99233; 99239; 99285; A9270-GY; C1725; C1769; C1876; C1887; J0583; J1642; J1644; J2250; J3010; J3475; Q9967

== ENCOUNTER 2023-11-26 06:18 | Observation (INO) ==
[2023-11-26 06:49] LABS: ABS Eosinophils 0.1 10^3/uL (0.0-0.5); ABS Lymphocytes 1.3 10^3/uL (1.0-4.8); ABS Monocytes 0.7 10^3/uL (0.0-1.1); ABS Neutrophils 3.4 10^3/uL (1.5-7.6); Hemoglobin 14.7 g/dL (13.2-16.3); Lymphocyte % 23.2 %; Mean Corpuscular Hemoglobin 34.2 pg (27-33); Mean Corpuscular Hgb Conc 35.7 g/dL (31-36); Mean Corpuscular Volume 95.6 fL (80-97); Mean Platelet Volume 9.8 fL (7.5-11.2); Nucleated Red Blood Cells % 0.1 %/100WBC (0.0-0.8); Platelet Count 119 10^3/uL (150-450); Red Blood Count 4.29 10^6/uL (4.06-5.63); Red Cell Distribution Width 13.8 % (12-17); White Blood Count 5.5 10^3/uL (3.6-10.2)
[2023-11-26 07:25] LABS: INR 1.65 (0.83-1.13)
[2023-11-26 08:04] LABS: Albumin 4.2 g/dL (3.2-5.2); Albumin/Globulin Ratio 1.7 (1-3); Calcium 9.5 mg/dL (8.6-10.3); Globulin 2.5 g/dL (2-4); Potassium 4.4 mmol/L (3.5-5.0); Total Bilirubin 1.2 mg/dL (0.2-1.0); Total Protein 6.7 g/dL (6.4-8.9); eGFR CKD-EPI 75.6 (>60)
[2023-11-26] MEDS ORDERED: Polyethylene Glycol 3350 17 GM PACKET PO PRN (08:11)
[2023-11-26] MEDS ORDERED: Senna TAB 8.6 mg TAB PO PRN (08:11)
[2023-11-26] MEDS ORDERED: Ondansetron 4 mg VIAL 2 MG/ML 2 ml VIAL IV PRN (08:11)
[2023-11-26 08:27] LABS: High Sensitivity Troponin 1 Hr 4 pg/mL (<20)
[2023-11-26] MEDS: Sulfur Hexaflouride MICROSPHR 25 MG VIAL IV ONE (14:10)
[2023-11-26] MEDS ORDERED: Enoxaparin 40 MG/0.4 ML SYR SUBCUT SCH (21:00)
[2023-11-27] MEDS ORDERED: Regadenoson 0.4 MG/5 ML SYRINGE ONE (07:31)
[2023-11-27] MEDS: Aspirin EC 81 mg TAB.EC (enteric coated) PO SCH (09:05)
[2023-11-27] MEDS: Cholecalciferol (VIT D3) 1,000 unit TAB PO SCH (09:05)
[2023-11-27 12:09] VITALS: BP 119/72
== END 2023-11-27 13:15 | disposition home or self-care (01) ==
LOC: ED 06:18 → EDHOLD 06:18 → MEDTELE 11:22
PROVIDERS: ADMIT Internal Medicine; ATTEND Internal Medicine